=== PATIENT | female | born 1945 | race Caucasian/White ===

== ENCOUNTER 2020-04-26 13:52 | Emergency (ER) | payer MEDICARE, OTHER, SELFPAY ==
[2020-04-26 14:00] VITALS: BP 125/79; PULSE 87; RESP 19; TEMP 36.9; O2SAT 99
[2020-04-26 14:16] VITALS: BP 143/103; PULSE 80; RESP 16; TEMP 36.2; O2SAT 96
[2020-04-26 14:23] LABS: Basophils Percent Auto 0.5 % (0.2-1.2); Eosinophils Absolute Auto 0.3 K/mm3 (0-0.3); Eosinophils Percent Auto 3.5 % (0-4.4); Hemoglobin 11.2 g/dL (12.0-15.0); Immature Granulocyte Absolute 0.04 K/mm3 (0.00-0.031); Immature Granulocyte Percent A 0.5 % (0-0.5); Immature Platelet Fraction Pct 10.6 % (0.9-11.2); Lymphocytes Absolute Auto 1.56 K/mm3 (0.9-3.2); Lymphocytes Percent Auto 18.4 % (18.3-44.2); Mean Corpuscular HGB Conc 31.1 g/dl (32-36); Mean Corpuscular Hemoglobin 26.9 pg (26-34); Mean Corpuscular Volume 86.5 fl (80-100); Monocytes Absolute Auto 0.8 K/mm3 (0.1-0.6); Neutrophils Absolute Auto 5.8 K/mm3 (1.3-6.7); Neutrophils Percent Auto 68.1 % (45.5-73.1); Platelet Count Result 53 k/mm3 (150-375); Red Blood Count 4.16 M/mm3 (4.2-5.4); Red Cell Distribution Width 17.1 % (11.5-14.5); White Blood Count 8.5 K/mm3 (4.5-10.0)
[2020-04-26 14:34] LABS: Alanine Aminotransferase 14 U/L (4-35); Albumin Level 4.6 g/dL (3.5-5.1); Alkaline Phosphatase 138 U/L (38-126); Aspartate Amino Transferase 24 U/L (14-36); Bilirubin,Total 0.5 mg/dL (0.2-1.3); Blood Urea Nitrogen 21 mg/dL (7-17); Calcium 9.2 mg/dL (8.4-10.2); Carbon Dioxide 20 mmol/L (22-30); Chloride 107 mmol/L (98-107); Estimated Glomerular Filt Rate 54; Glucose 117 mg/dL (65-105); Potassium 4.2 mmol/L (3.4-5.0); Sodium 140 mmol/L (137-145)
[2020-04-26 15:25] LABS: Add Urine Microscopic? YES; Appearance Urine Turbid (Clear); Bacteria Urine 2+ /hpf; Bilirubin Urine Negative (Negative); Blood Urine 3+ (Negative); Color Urine Yellow (Yellow); Glucose Urine UA Negative (Negative); Ketones Urine Negative (Negative); Leukocyte Esterase Ur 3+ LEU/UL (Negative); Nitrate Urine Negative (Negative); Protein Urine 2+ mg/dL (Negative); RBC Urine >75 /hpf (0-2); Specific Grav Ur 1.015 (1.001-1.035); Squamous Epithelial Cell Urine Moderate /hpf (Few); Urobilinogen Urine Negative mg/dL (<2.0); WBC Clumps Urine Present /HPF; WBC Urine >75 /hpf
--- NOTE | 2020-04-26 15:48 | ED.ABDPAIN ---
HPI - Abdominal Pain General Chief Complaint: Urogenital-Female Stated Complaint: bloody urine Time Seen by Provider: 04/26/20 13:55 Source: patient Mode of arrival: ambulatory Limitations: no limitations History of Present Illness HPI narrative: Patient is a 74-year-old female who presents with 1 day duration of intermittent hematuria and some discomfort with urination and some mild low back pain patient denies any fever chills nausea vomiting patient presents per private vehicle has not been seen for this complaint does not take anything for her symptoms Related Data Home Medications Medication Instructions Recorded Confirmed acetaminophen 325 mg capsule 325 mg PO Q6H PRN 11/01/19 aspirin 81 mg tablet,delayed 81 mg PO DAILY 11/01/19 release atorvastatin 10 mg tablet 10 mg PO DAILY 11/01/19 calcium carbonate 600 mg calcium 600 mg PO DAILY 11/01/19 (1,500 mg) tablet cholecalciferol (vitamin D3) 50 2,000 unit PO DAILY 11/01/19 mcg (2,000 unit) tablet cyanocobalamin (vitamin B-12) 500 500 mcg PO DAILY 11/01/19 mcg tablet duloxetine 30 mg capsule,delayed 30 mg PO DAILY 11/01/19 release eletriptan 20 mg tablet 20 mg PO ONCE 11/01/19 esomeprazole magnesium 40 mg 40 mg PO DAILY 11/01/19 capsule,delayed release lisinopril 10 mg tablet 10 mg PO DAILY 11/01/19 magnesium 30 mg tablet 30 mg PO DAILY 11/01/19 propranolol 80 mg capsule,24 80 mg PO DAILY 11/01/19 hr,extended release Allergies Allergy/AdvReac Type Severity Reaction Status Date / Time GAMMAGLOBULIN Allergy Unknown unknown Uncoded 11/03/19 11:36 Review of Systems Review of Systems: All systems reviewed & are unremarkable except as noted in HPI and below PMFSH Past Medical History Medical History (Updated 04/26/20 @ 15:51 by Juan A Gruber PA-C) Obesity Family History Family History (Updated 05/12/18 @ 06:24 by DOCTOR UNKNOWN) Father Hypertension Acute myocardial infarction Sibling Hypertension Social History Social History Smoking status: Never smoker Exam Narrative: Exam Narrative: GENERAL: Well-appearing, well-nourished, and in no acute distress. HEAD: Normocephalic, atraumatic. EYES: PERRLA and EOMI. ENT: Nares clear, no rhinorrhea or epistaxis. Mucous membranes moist. CHEST: Clear to auscultation. No respiratory distress. No wheezes rales or rhonchi HEART: Regular rate and rhythm. No murmur heard. Normal peripheral pulses. ABDOMEN: Soft, nontender, nondistended EXTREMITIES: Normal range of motion. No edema. SKIN: Warm, dry, no rash. NEURO: No focal deficits. Alert and oriented x3. Cranial nerves II through XII grossly intact PSYCH: Normal mood and affect. Course Course Emergency Course: patient in the room in no distress aware of case findings treatment plan and diagnosis was given IV antibiotic and fluids in the emergency department is afebrile nontoxic-appearing no distress felt appropriate for outpatient reevaluation provided with reasons to return Vital Signs Vital signs: Vital Signs Temperature 98.5 F 04/26/20 14:00 Pulse Rate 87 04/26/20 14:00 Respiratory Rate 19 04/26/20 14:00 Blood Pressure 125/79 04/26/20 14:00 Pulse Oximetry 99 04/26/20 14:00 Temperature 97.2 F L 04/26/20 14:16 Pulse Rate 80 04/26/20 14:16 Respiratory Rate 16 04/26/20 14:16 Blood Pressure 143/103 H 04/26/20 14:16 Pulse Oximetry 96 04/26/20 14:16 MDM - Abdominal Pain MDM Narrative Medical decision making narrative: Patient with urinary tract infection was hydrated in the emergency department was given IV antibiotic and fluids hemodynamically stable nontoxic without emesis felt appropriate for outpatient reevaluation agreeing to follow-up as directed and provided with reasons to return Lab Data Result diagrams: 04/26/20 14:14 04/26/20 14:14 Labs: Lab Results 04/26/20
[2020-04-26] MEDS: SODIUM CHLORIDE 0.9% IV 500 ML 999 ML IV CONT (16:21)
[2020-04-26 16:25] VITALS: BP 105/58; PULSE 71; RESP 24; TEMP 36.3; O2SAT 98
[2020-04-26 18:10] VITALS: BP 109/59; PULSE 69; RESP 22; TEMP 36.7; O2SAT 98
== END 2020-04-26 18:18 | disposition home or self-care (01) ==
PROVIDERS: Emergency Medicine Emergency Medical Services; Emergency Provider Emergency Medicine
DX: N39.0 Urinary tract infection, site not specified (principal); E66.9 Obesity, unspecified
CPT/HCPCS: 36415; 80053; 81001; 85025; 85055; 87077; 87086; 87088; 87186; 96365; 99284; J0696; J7040

== ENCOUNTER 2020-06-25 15:25 | Outpatient (CLI) | payer MEDICARE, OTHER, SELFPAY ==
--- NOTE | ~2020-06-25 | US_ITS ---
EXAMINATION: US pelvic complete w TV DATE: 06/25/2020 16:20 INDICATION: Postmenopausal bleeding TECHNIQUE: Multiple transabdominal and endovaginal sonographic images of the pelvis were obtained. COMPARISON: None. FINDINGS: The uterus measures 4.6 x 2.2 x 3.1 cm. The endometrial complex measures 3 mm. The left ova ry is not visualized however no left adnexal abnormality is seen. The right ovary measures 1.4 x 1.3 x 2.0 cm. There is normal vascular flow in the right ovary. There is no free fluid in the pelvis. IMPRESSION: 1. No sonographic correlate for the patient's symptoms. Reviewed, dictated and finalized at location A.
== END 2020-06-25 15:26 | disposition home or self-care (01) ==
PROVIDERS: Visit Provider Obstetrics & Gynecology Gynecology
DX: Z78.0 Asymptomatic menopausal state (principal)
CPT/HCPCS: 76830; 76856

== ENCOUNTER 2020-07-05 12:21 | Outpatient (CLI) | payer MEDICARE, OTHER, SELFPAY ==
--- NOTE | ~2020-07-05 | MM_ITS ---
EXAMINATION: MM screen LT diag RT w tima HISTORY: Follow-up right breast asymmetry TECHNIQUE: Additional 3-D tomosynthesis images of the right breast were performed and synthetic 2-D i mages were generated. Screening left mammogram. CAD analysis was submitted and interpreted. COMPARISON: Comparison to multiple prior studies sequentially, with oldest reviewed study dated 10/22. BREAST PARENCHYMAL COMPOSITION: There are scattered areas of fibroglandular density. FINDINGS: No significant change to right breast asymmetry. No suspicious masses, calcifications or ar chitectural distortion to suggest malignancy. IMPRESSION: 1. No mammographic evidence for malignancy in either breast. 2. Routine yearly screening mammogram and regular clinical breast examination are recommended. BI-RADS Category 2: Benign finding(s). Reviewed, dictated and finalized at location A. IMPRESSION: 1. No mammographic evidence for malignancy in either breast. 2. Routine yearly screening mammogram and regular clinical breast examination a re recommended. BI-RADS Category 2: Benign finding(s).
--- NOTE | ~2020-07-05 | DEXA_ITS ---
Bone Density Report Name: Lana Kinney Age: 75 Sex: Female Ethnicity: White Date of : 1945 Indication: postmenopausal; height loss; prior fracture; Referring Provider: MARIA ESTHER ALEXANDRA Study: Bone densitometry was performed. Exam Date: July 05, 2020 Accession number: [id number] Bone Density: Region BMD T-score Z-score Classification AP Spine (L1-L4) 1.126 0.7 3.1 Normal Femoral Neck (Left) 0.713 -1.2 0.8 Osteopenia Total Hip (Left) 0.950 0.1 1.8 Normal Total Hip Bilateral Avg 0.938 0.0 1.7 Normal Femoral Neck (Right) 0.787 -0.6 1.5 Normal Total Hip (Right) 0.926 -0.1 1.6 Normal World Health Organization criteria for BMD impression classify patients as: Normal (T-score at or above -1.0), Osteopenia (T-score between -1.0 and -2.5), or Osteoporosis (T-score at or below -2.5). 10-year Fracture Risk(1): Major Osteoporotic Fracture 14% Hip Fracture 1.9% Reported Risk Factors: [place] (), Neck BMD=0.713, BMI=40.8, previous fracture (1) FRAX(R) Version 3.08. Fracture probability calculated for an untreated patient. Fracture probability may be lower if the patient has received treatment. Clinical Information Provided by Patient: Has had a low trauma fracture Has used the following medications: Vitamin D, Calcium Patient maximum height was 62 Menopause Age: 59 Drinks caffeinated beverages Onset of menses at age 11 Number of children 3 Impression: The patient has low bone mass, based on the Left Femoral Neck T-score. The patient has an estimated ten-year risk of hip fracture of 1.9% and an estimated ten-year risk of major fracture of 14%, based on the WHO FRAX algorithm. The patient has risk factors, including: previous fracture. Discussion: BONE DENSITY IS LOW AT ONE OR MORE SKELETAL SITES. This patient's lowest T-score is low at one or more skeletal sites. It meets the World Health Organization's (WHO) criteria for ?low bone mass? (T-score between -1.0 and -2.5). The patient's 10-year risk of fracture as calculated by FRAX is less than the threshold where pharmacological therapy is recommended by the National Osteoporosis Foundation (NOF). However, all treatment decisions require clinical judgment and consideration of individual patient factors, including patient preferences, comorbidities, previous drug use, risk factors not captured in the FRAX model (e.g., frailty, falls, vitamin D deficiency, increased bone turnover, interval significant decline in bone density) and possible under or overestimation of fracture risk by FRAX. The patient should follow a healthful lifestyle (good nutrition with adequate calcium and vitamin D, and appropriate weight-bearing exercise). Follow-Up: Consider repeating this study in 2 to 3 years to reassess this patient's status, or sooner if there is torri
== END 2020-07-05 12:22 | disposition home or self-care (01) ==
PROVIDERS: PCP Obstetrics & Gynecology Gynecology; Visit Provider Obstetrics & Gynecology Gynecology
DX: Z12.31 Encounter for screening mammogram for malignant neoplasm of breast (principal); Z78.0 Asymptomatic menopausal state; R92.8 Other abnormal and inconclusive findings on diagnostic imaging of breast
CPT/HCPCS: 77063; 77065; 77067; 77080

== ENCOUNTER 2021-02-05 15:04 | Inpatient (IN) | payer MEDICARE, OTHER, SELFPAY ==
[2021-02-05] VITALS (10 sets, daily range): BP systolic 78–157; BP diastolic 48–95; PULSE 54–67; RESP 16–28; TEMP 36.1–36.2; O2SAT 92–98
--- NOTE | ~2021-02-05 | XR_ITS ---
XR chest 1V portable 02/11/2021 13:08 Indication: Shortness of breath Procedure: AP portable chest Comparison: Comparison to multiple prior studies sequentially, with oldest reviewed study dated 04/11. Findings: Cardiomegaly with interstitial edema. Large hiatal hernia. No significant pleural effusion or pneumothorax. No acute osseous abnormality. Impression: 1: Cardiomegaly with interstitial edema. No significant change compared with 02/09/2021. Reviewed, dictated and finalized at location A. Impression: 1: Cardiomegaly with interstitial edema. No significant change compared with .
--- NOTE | ~2021-02-05 | CT_ITS ---
EXAMINATION: CT brain wo con DATE: 02/05/2021 19:24 INDICATION: Dizziness. Fall. TECHNIQUE: Computed tomography (CT) of the head was performed without intravenous contrast. The mA wa s adjusted according to patient size. Iterative reconstruction technique was employed. Exam dose: 60 5.33 mGy-cm total exam DLP. COMPARISON: 04/11/2016 CT brain FINDINGS: No intracranial mass lesion or hemorrhage or cerebrovascular accident is detected. No midli ne shift or mass effect. Bilateral carotid siphon internal carotid artery calcifications. There is nonspecific diminished atte nuation of cerebral white matter, likely due to chronic small vessel ischemic changes. No subdural or epidural hematoma is detected. The orbits are unremarkable. No fracture or bone destruction of the cranial vault. There is soft tissue thickening of the ethmoid air cells. Included paranasal sinuses and mastoid air cells are otherwise unremarkable. IMPRESSION: Cerebral atherosclerosis and chronic small vessel ischemic changes of cerebral white mat ter No skull fracture or acute intracranial abnormality Reviewed, dictated and finalized at Location A. Reviewed, dictated and finalized at location A. IMPRESSION: Cerebral atherosclerosis and chronic small vessel ischemic changes of cerebral white matter No skull fracture or acute intracranial abnormality
--- NOTE | ~2021-02-05 | XR_ITS ---
EXAMINATION: XR chest 2V EXAM DATE: 02/05/2021 16:18 INDICATION: Dizziness, weakness, shortness of breath, decreased appetite. TECHNIQUE: Frontal and lateral projections of the chest obtained and reviewed. Comparison is made to prior examination from 04/11/2016. FINDINGS: Possible small amount of left perihilar acute airspace disease, possible developing pneumo edin without dense confluent consolidation. Heart is normal in size. There is moderate-sized gastroeso phageal hiatal hernia. No pneumothorax or pleural effusion. There are cholecystectomy clips. Mild to moderate lower thoracic levoscoliosis, thoracolumbar dextroscoliosis. IMPRESSION: 1. Possible ill-defined left perihilar acute airspace disease. Please clinically correlate. 2. Moderate gastroesophageal hiatal hernia. Reviewed, dictated and finalized at location A. IMPRESSION: 1. Possible ill-defined left perihilar acute airspace disease. Please clinical ly correlate. 2. Moderate gastroesophageal hiatal hernia.
--- NOTE | ~2021-02-05 | CT_ITS ---
EXAMINATION: CT abdomen pelvis w con DATE: 02/05/2021 21:53 INDICATION: Right lower quadrant abdominal pain, tenderness TECHNIQUE: Computed tomography (CT) of the abdomen and pelvis was performed with 100 cc Omnipaque 350 intravenous contrast. Automated exposure control and iterative reconstruction technique were employe d. Exam dose: 1161.59 mGy-cm total exam DLP. COMPARISON: None. FINDINGS: Cardiomegaly. No pericardial or pleural effusion. There is patchy left lower lobe infiltrate. Moderate hiatal hernia. Status post cholecystectomy. No bile duct or pancreatic duct dilatation. No hepatic, splenic, pancreatic, adrenal space-occupying mass lesion. There is heterogeneous enhancement of the posterolateral aspect of the mid to lower right kidney; thi s appearance is nonspecific and could be secondary to pyelonephritis, but hypernephroma is not exclud ed. Consider MR renal imaging. Left kidney is small and scarred. There is a 5.3 x 7.1 mm nonobstructing left renal calculus. Normal caliber of the abdominal aorta. No intraperitoneal or retroperitoneal or pelvic mass lesion or adenopathy or ascites. Retroverted uterus. The urinary bladder is unremarkable. There is a suture line of the sigmoid colon from prior resection. There are multiple diverticula of t he sigmoid and descending as well as transverse colon. No CT evidence of diverticulitis. There are numerous scattered small bowel air-fluid levels but no small bowel dilatation or apparent b owel wall thickening. No intraperitoneal free air. Grade 2 anterolisthesis and severe degenerative disc disease at L4-5. Severe degenerative disc disease and eburnation at T9-10. There is a 1.5 cm lytic lesion of the right side of the L1 vertebral body. IMPRESSION: Heterogeneous enhancement of the posterolateral mid to lower right kidney; diffusion haylee gnosis includes pyelonephritis but hypernephroma is not excluded. Consider MR imaging Chronic pyelonephritis of left kidney 5.3 x 7.1 mm nonobstructing left renal calculus Status post sigmoid colon resection line diverticulosis of the colon; no CT evidence of diverticuliti s Nonspecific nondilated small bowel fluid containing segments with air-fluid levels 1.5 cm lytic lesion of L1 vertebral body; consider radionuclide bone scan Grade 2 anterolisthesis and severe degenerative disc disease at L4-5 Severe degenerative change at T9-10 Moderate hiatal hernia Status post cholecystectomy Cardiomegaly Patchy left lower lobe pulmonary infiltrate Reviewed, dictated and finalized at Location A. Reviewed, dictated and finalized at location A. IMPRESSION: Heterogeneous enhancement of the posterolateral mid to lower right kidney; diffusion diagnosis includes pyelonephritis but hypernephroma is not e xcluded. Consider MR imaging Chronic pyelonephritis of left kidney 5.3 x 7.1 mm nonobstructing left renal calculus Status post sigmoid colon resection line diverticulosis of the colon; no CT arianna dence of diverticulitis Nonspecific nondilated small bowel fluid containing segments with air-fluid lev els 1.5 cm lytic lesion of L1 vertebral body; consider radionuclide bone scan Grade 2 anterolisthesis and severe degenerative disc disease at L4-5 Severe degenerative change at T9-10 Moderate hiatal hernia Status post cholecystectomy Cardiomegaly Patchy left lower lobe pulmonary infiltrate
--- NOTE | ~2021-02-05 | XR_ITS ---
XR chest 1V portable DATE: 02/09/2021 13:15 INDICATION: Infiltrates. Wheezing, hypoxia TECHNIQUE: Portable AP chest on 02/09/2021 at 1310 hours COMPARISON: 02/07/2021 portable AP chest 02/05/2021 PA and lateral chest 04/11/2016 2 view chest 12/17/2013 PA and lateral chest FINDINGS: Approximately 11 mm opacity overlies the medial right upper lung. Suggestion of an approxim ately 1.7 mm density overlying the lower right hilum. CT thorax with IV contrast material is recommen ded for further evaluation. Heart size is borderline. There is mild pulmonary vascular congestion. No pneumothorax. Mild aortic unfolding. Moderate hiatal hernia. Diffuse osteopenia. IMPRESSION: 1 mm opacity overlying medial right upper lung field and 17 mm opacity overlying right in frahilar area. Consider CT thorax with IV contrast material Mild congestive changes Moderate hiatal hernia, also present on 12/17/2013 Osteopenia Reviewed, dictated and finalized at location A. IMPRESSION: 1 mm opacity overlying medial right upper lung field and 17 mm opac ity overlying right infrahilar area. Consider CT thorax with IV contrast materi al Mild congestive changes Moderate hiatal hernia, also present on 12/17/2013 Osteopenia
--- NOTE | ~2021-02-05 | XR_ITS ---
EXAMINATION: XR chest 1V portable DATE: 02/07/2021 05:50 INDICATION: Wheezing. Hypoxia. TECHNIQUE: A single frontal view of the chest was obtained. COMPARISON: Chest 2 views 02/05/2021, CT abdomen and pelvis 02/05/2021 FINDINGS: There are airspace opacities in right lower lung zone and left perihilar region. No pleural effusion or pneumothorax. Cardiomegaly is noted. There is a moderate-sized hiatal hernia. IMPRESSION: 1. Worsened airspace opacities in right lower lung zone and left perihilar region, consistent with pu lmonary edema versus pneumonia. 2. Cardiomegaly. 3. Moderate-sized hiatal hernia. Reviewed, dictated and finalized at location A. IMPRESSION: 1. Worsened airspace opacities in right lower lung zone and left perihilar mone on, consistent with pulmonary edema versus pneumonia. 2. Cardiomegaly. 3. Moderate-sized hiatal hernia.
--- NOTE | ~2021-02-05 | BM_ITS ---
EXAMINATION: CCL bone marrow asp w bx diag DATE: 02/07/2021 11:05 INDICATION: Pancytopenia. TECHNIQUE: A time-out was performed to verify the patient's name, date of , and procedure to b e performed. The procedure was discussed with the patient. The skin overlying the left ilium was prep ped and draped in usual sterile fashion. Anesthetic was administered with 1% lidocaine subcutaneousl y. 50 mg fentanyl IV was given for pain control. An 11 gauge needle was inserted into the ilium with fluoroscopic guidance. Bone marrow was aspirated. An 8 gauge needle was then inserted into the ilium with fluoroscopic guidance. A core bone marrow biopsy was obtained. There were no immediate complicat ions. Fluoroscopy exposure time was 0.0 minutes. The total number of images was 13. FINDINGS: Real-time fluoroscopy demonstrates a marker overlying the left posterior superior iliac spi ne. IMPRESSION: 1. Fluoro-guided bone marrow aspiration. 2. Fluoro-guided bone marrow core biopsy. Reviewed, dictated and finalized at location A.
--- NOTE | 2021-02-05 15:23 | ECG_ITS ---
Measurements Intervals Gold Run Rate: 56 P: 8 HI: 146 QRS: -10 QRSD: 102 T: -9 QT: 419 QTc: 404 Interpretive Statements SINUS BRADYCARDIA LOW QRS VOLTAGE IN PRECORDIAL LEADS INFERIOR INFARCT, AGE INDETERMINATE BORDERLINE T WAVE ABNORMALITY- ANTERIOR LEADS BASELINE ARTIFACT- I, II, AVR, AVL ABNORMAL ECG Electronically Signed On 02-05-2021 20:14:53 CDT by Matthias Bryant D.O.
--- NOTE | 2021-02-05 16:38 | PC.NURSE ---
attempt at blood per this RN unsuccessful.
[2021-02-05 18:31] LABS: Hematocrit 22.7 % (37.0-47.0); Hemoglobin 7.3 g/dL (12.0-15.0); Immature Platelet Fraction Pct 13.6 % (0.9-11.2); Mean Corpuscular HGB Conc 32.2 g/dl (32-36); Mean Corpuscular Hemoglobin 32.9 pg (26-34); Mean Corpuscular Volume 102.3 fl (80-100); Platelet Count Result 30 k/mm3 (150-375); Red Blood Count 2.22 M/mm3 (4.2-5.4); Red Cell Distribution Width 19.7 % (11.5-14.5)
[2021-02-05 18:41] LABS: Alanine Aminotransferase 8 U/L (4-35); Albumin Level 3.6 g/dL (3.5-5.1); Alkaline Phosphatase 85 U/L (38-126); Anion Gap 15 mmol/L (8-16); Aspartate Amino Transferase 19 U/L (14-36); Bilirubin,Total 1.7 mg/dL (0.2-1.3); Blood Urea Nitrogen 51 mg/dL (7-17); Calcium 8.7 mg/dL (8.4-10.2); Carbon Dioxide 20 mmol/L (22-30); Chloride 102 mmol/L (98-107); Estimated CRCL calculation 46 ml/min; Estimated Glomerular Filt Rate 44; Glucose 136 mg/dL (65-105); Potassium 4.2 mmol/L (3.4-5.0); Sodium 137 mmol/L (137-145)
[2021-02-05 18:45] LABS: White Blood Count 1.4 K/mm3 (4.5-10.0)
[2021-02-05 18:54] LABS: Band Neutrophils Percent 4 % (0-6); Lymphocytes Absolute Manual 0.81 K/mm3 (1.1-4.5); Monocytes Absolute Manual 0.08 K/mm3 (0.1-0.90); Monocytes Percent Manual 6 % (3-9); Neutrophils Percent Manual 32 % (46-73); Platelet Estimate Decreased (Adequate); Total Cells Counted 100
[2021-02-05 18:55] LABS: Anisocytosis 2+ (NORMAL); Hypochromasia 1+ (NORMAL)
--- NOTE | 2021-02-05 19:25 | ED.GENADULT ---
HPI - General Adult General Chief complaint: Shortness of Breath/Dyspnea Stated complaint: dizzy, sob, no appetite x1 wk Time Seen by Provider: 02/05/21 18:14 Source: patient and family Mode of arrival: ambulatory History of Present Illness HPI narrative: This is 75 year old female who presents from home for evaluation of poor appetite, weakness . Patient is complaining of sore throat for 6 months. She reports pain with swallowing and it is worse with cold water. She denies food getting stuck or nausea or vomiting. Her is at bedside he states patient has not ate much over the past week. He states she is having vertigo, and she has fallen due to it. She denies vertigo now. She states when she walks she has to hold onto the wall. She denies chest pain, abdominal pain, nausea, vomiting or diarrhea. She reports having a cough for several months as well. Related Data Home Medications Medication Instructions Recorded Confirmed acetaminophen 325 mg capsule 325 mg PO Q6H PRN 11/01/19 11/01/20 aspirin 81 mg tablet,delayed 81 mg PO DAILY 11/01/19 11/01/20 release atorvastatin 10 mg tablet 10 mg PO DAILY 11/01/19 11/01/20 calcium carbonate 600 mg calcium 600 mg PO DAILY 11/01/19 11/01/20 (1,500 mg) tablet cholecalciferol (vitamin D3) 50 2,000 unit PO DAILY 11/01/19 11/01/20 mcg (2,000 unit) tablet cyanocobalamin (vitamin B-12) 500 500 mcg PO DAILY 11/01/19 11/01/20 mcg tablet duloxetine 30 mg capsule,delayed 30 mg PO DAILY 11/01/19 11/01/20 release eletriptan 20 mg tablet 20 mg PO ONCE 11/01/19 11/01/20 esomeprazole magnesium 40 mg 40 mg PO DAILY 11/01/19 11/01/20 capsule,delayed release lisinopril 10 mg tablet 10 mg PO DAILY 11/01/19 11/01/20 magnesium 30 mg tablet 30 mg PO DAILY 11/01/19 11/01/20 propranolol 80 mg capsule,24 80 mg PO DAILY 11/01/19 11/01/20 hr,extended release Allergies Allergy/AdvReac Type Severity Reaction Status Date / Time GAMMAGLOBULIN Allergy Unknown Anaphylactic Uncoded 02/05/21 18:18 Shock Review of Systems Review of Systems: All systems reviewed & are unremarkable except as noted in HPI and below Constitutional: Constitutional: Denies chills and Denies fever(s) ENT: Reports dizziness and Reports sore throat Cardiovascular: Cardiovascular: Denies chest pain Respiratory: Respiratory: Reports cough and Reports dyspnea Gastrointestinal: Gastrointestinal: Denies abdominal pain, Denies diarrhea, Denies nausea and Denies vomiting PMFSH Past Medical History Medical History Obesity Family History Family History Father Hypertension Acute myocardial infarction Sibling Hypertension Social History Social History Smoking status: Never smoker Gender identity (if verbalized by the patient): Female Exam Const: General: no acute distress and alert Other: oriented to person, age, place HENMT: Ears: TM's normal bilaterally Face and sinus: sinuses nontender Mouth: Yes Normal oral and palatal mucosa present and Yes moist mucous membranes Throat: posterior oropharynx normal and uvula midline Eyes: Pupils: Equal, round and reactive pupils present EOM: EOMs intact bilaterally Neck: Neck: normal visual inspection Chest: Chest palpation & inspection: normal inspection of the chest Resp: Effort & Inspection: normal respiratory effort and no retractions Auscultation: clear to auscultation bilaterally Cardio: Rate: regular rate Rhythm: regular rhythm GI: GI Palp: Yes Soft to palpation, Yes Tenderness to palpation present (GI) and No Guarding due to palpation present (GI) Other: brown stool guaic positive Back/Spine/Pelvis: Back: no CVA tenderness Skin: General skin exam: normal color Rashes: no rashes Neuro: General: patient oriented x3, moves all extremities, no foc
--- NOTE | 2021-02-05 20:25 | PC.NURSE ---
called lab to draw blood.
[2021-02-05 21:08] LABS: Lactic Acid Reflex 1.6 mmol/L (0.7-2.1)
[2021-02-05] MEDS: PANTOPRAZOLE SODIUM IV 40 MG VIAL IV PUSH (21:15)
[2021-02-05 21:34] LABS: Iron 78 ug/dL (37-170)
[2021-02-05] MEDS: SODIUM CHLORIDE 0.9% IV 1,000 ML 999 ML IV CONT (21:39)
--- NOTE | 2021-02-05 21:42 | PC.NURSE ---
[facility] [phone] cell [phone]
[2021-02-05 21:43] LABS: Percent Iron Saturation 30 % (20-50)
[2021-02-05 21:58] LABS: Add Urine Microscopic? YES; Appearance Urine Cloudy (Clear); Bacteria Urine 4+ /hpf; Bilirubin Urine Negative (Negative); Blood Urine 1+ (Negative); Color Urine Amber (Yellow); Glucose Urine UA Negative (Negative); Ketones Urine Negative (Negative); Leukocyte Esterase Ur 3+ LEU/UL (Negative); Mucus Urine Few /lpf; Nitrate Urine Negative (Negative); Protein Urine 1+ mg/dL (Negative); Squamous Epithelial Cell Urine Many /hpf (Few); WBC Urine >75 /hpf
[2021-02-05 23:19] LABS: Folic Acid 4.8 ng/mL (2.76->20)
[2021-02-06] VITALS (40 sets, daily range): BP systolic 85–146; BP diastolic 48–97; PULSE 52–107; RESP 14–28; TEMP 35.9–38.3; O2SAT 91–100; BMI 41.5; BMI 41.3
[2021-02-06] MEDS: SODIUM CHLORIDE 0.9% IV 1,000 ML 999 ML IV CONT (00:04)
--- NOTE | 2021-02-06 00:30 | ADMGEN ---
This patient, Lana Kinney, was admitted to Intensive Care Unit-3. Patient/family oriented to hospital policies and general routines including ID bracelet, bed and alarms, visiting hours, pain management, procedures, bathroom and other care routines, personal items, smoking policy, room service/diet, and visiting hours. Information on how to activate the Rapid Response Team has been discussed. Patient/Family are encouraged to report perceived risks to care and to ask questions if they do not understand what they are told or what they should do.
[2021-02-06 01:10] LABS: Magnesium 2.1 mg/dL (1.6-2.3)
--- NOTE | 2021-02-06 01:27 | PM.IMHP ---
H&P: HPI History of Present Illness Date/Time: 02/06/21 01:27 Chief Complaint: Generalized weakness and decreased PO intake over the past week+ Narrative: This is a 75-year-old morbidly obese female with known past medical history of chronic hypertension, GERD, and hyperlipidemia who presented to the hospital for evaluation of generalized weakness and decreased appetite over the past week. The patient complains that she has had a sore throat for almost 6 months now that includes difficulty with swallowing. The patient admits that she has not eaten much food over the past week. She denies any significant fevers or chills. She denies any significant shortness of breath although she does mention that she has had a sporadic cough for well over a month now. She also denies any chest pain, nausea, vomiting, abdominal pain, hematuria, diarrhea, or rectal bleeding. The patient was evaluated emergency room this evening and found to be in septic shock with pancytopenia and persistently low blood pressure despite IV fluid boluses. Urinalysis was grossly abnormal. CT abd/pelvis showed acute pyelonephritis. The patient has been started on IV antibiotics. She has been swabbed for COVID-19. S[employer] Lap Machine Tender has been consulted. We been asked to admit the patient to the hospital for further care. She has no other complaints. Review of Systems Review of Systems: All systems reviewed & are unremarkable except as noted in HPI and below PMFSH Past Medical History Medical History (Updated 02/06/21 @ 05:37 by Delvis Lindsey MD) Essential hypertension GERD (gastroesophageal reflux disease) Hyperlipidemia Obesity Family History Family History Father Acute myocardial infarction Hypertension Sibling Hypertension Mother Cerebrovascular accident Social History Social History Smoking status: Never smoker Alcohol intake: current Drinks per week: 1 Substance use: never Gender identity (if verbalized by the patient): Female Spiritual care concerns: No Meds Home Medications and Allergies Home Medications Medication Instructions Recorded Confirmed Type acetaminophen 325 mg capsule 325 mg PO Q6H PRN 11/01/19 02/06/21 History aspirin 81 mg tablet,delayed 81 mg PO DAILY 11/01/19 02/06/21 History release atorvastatin 10 mg tablet 10 mg PO DAILY 11/01/19 02/06/21 History calcium carbonate 600 mg calcium 600 mg PO PRN PRN 11/01/19 02/06/21 History (1,500 mg) tablet cholecalciferol (vitamin D3) 50 2,000 unit PO DAILY 11/01/19 02/06/21 History mcg (2,000 unit) tablet cyanocobalamin (vitamin B-12) 500 500 mcg PO DAILY 11/01/19 02/06/21 History mcg tablet duloxetine 30 mg capsule,delayed 30 mg PO DAILY 11/01/19 02/06/21 History release eletriptan 20 mg tablet 20 mg PO PRN PRN 11/01/19 02/06/21 History esomeprazole magnesium 40 mg 40 mg PO DAILY 11/01/19 02/06/21 History capsule,delayed release lisinopril 10 mg tablet 10 mg PO DAILY 11/01/19 02/06/21 History propranolol 80 mg capsule,24 80 mg PO DAILY 11/01/19 02/06/21 History hr,extended release Allergies Allergy/AdvReac Type Severity Reaction Status Date / Time GAMMAGLOBULIN Allergy Unknown Anaphylactic Uncoded 02/05/21 18:18 Shock Vital Signs Vital Signs - 24 hr 02/05/21 16:38 02/05/21 18:14 02/05/21 18:16 Temperature 36.1 C L 36.2 C L Pulse Rate 58 L 60 54 L Respiratory Rate 18 23 H Blood Pressure 93/67 L 139/53 L Pulse Oximetry 96 98 02/05/21 18:26 02/05/21 19:00 02/05/21 21:08 Temperature Pulse Rate 57 L 56 L 58 L Respiratory Rate 16 19 21 H Blood Pressure 139/53 L 128/69 157/95 H Pulse Oximetry 97 98 02/05/21 21:35 02/05/21 21:37 02/05/21 22:01 Temperature Pulse Rate 67 65 57 L Respiratory Rate 22 H 28 H 24 H Blood Pressure 78/64 L 97/50 L 84/48 L Pulse Oximetry 92 93 94 02/05/21 2
[2021-02-06 01:36] LABS: INR 1.2; Prothrombin Time 15.6 Seconds (11.1-14.7)
[2021-02-06 01:37] LABS: Partial Thromboplastin Time 32.7 SECONDS (22.3-36.8)
[2021-02-06 01:39] LABS: D Dimer 3.39 ug/mL (<0.48)
[2021-02-06 01:44] LABS: Fibrinogen 528 mg/dl (215-510)
[2021-02-06 02:51] LABS: Alveolar/Arterial O2 Gradient 72.5 mmHg; Base Excess ABG -3.5 mEq/l (+/-2.0); Fractional Inspired Oxygen 24 %; HCO3 ABG 20.2 mEq/l (22.0-26.0); Oxygen Content ABG 7.3 %vol (16.0-22.0); Oxygen Saturation ABG 93.5 % (95.0-100.0); Oxyhemoglobin 88.5 % THb (90.0-100.0); PCO2 ABG 29.7 mmHg (35.0-45.0); PO2 ABG 63.3 mmHg (80.0-100.0); PO2 FiO2 Ratio Arterial Blood 2.64 %
[2021-02-06 02:52] LABS: Modified Allen's Test Pass; Site Drawn RIGHT RADIAL; Total Hemoglobin 5.8 g/dL (12.0-18.0)
[2021-02-06 02:53] LABS: Device NASAL CANNULA
[2021-02-06 03:45] LABS: Basophils Percent Auto 1.7 % (0.2-1.2); Eosinophils Percent Auto 0.9 % (0-4.4); Immature Granulocyte Absolute 0.04 K/mm3 (0.00-0.031); Immature Granulocyte Percent A 3.4 % (0-0.5); Immature Reticulocyte Fraction 13.5 % (3.0-15.9); Lymphocytes Absolute Auto 0.56 K/mm3 (0.9-3.2); Lymphocytes Percent Auto 47.9 % (18.3-44.2); Mean Corpuscular HGB Conc 32.1 g/dl (32-36); Mean Corpuscular Hemoglobin 32.4 pg (26-34); Mean Corpuscular Volume 101.1 fl (80-100); Monocytes Absolute Auto 0.2 K/mm3 (0.1-0.6); Monocytes Percent Auto 12.8 % (2.6-8.5); Neutrophils Absolute Auto 0.4 K/mm3 (1.3-6.7); Neutrophils Percent Auto 33.3 % (45.5-73.1); Nucleated Red Blood Cells Perc 1.7 % (0.0-0.2); Red Blood Count 1.82 M/mm3 (4.2-5.4); Red Cell Distribution Width 19.6 % (11.5-14.5); Reticulocyte Hemoglobin Conten 29.8 pg (28.2-35.7); Reticulocyte Percent 1.35 % (0.7-4.3); Reticulocytes Absolute 0.02 B/L (32.2-175.7)
[2021-02-06 03:58] LABS: Transferrin 163 mg/dL (206-381)
[2021-02-06 04:26] LABS: Alanine Aminotransferase 6 U/L (4-35); Alkaline Phosphatase 64 U/L (38-126); Anion Gap 7 mmol/L (8-16); Aspartate Amino Transferase 17 U/L (14-36); Bilirubin,Total 1.2 mg/dL (0.2-1.3); Blood Urea Nitrogen 41 mg/dL (7-17); Calcium 7.9 mg/dL (8.4-10.2); Carbon Dioxide 24 mmol/L (22-30); Chloride 102 mmol/L (98-107); Estimated Glomerular Filt Rate 54; Glucose 203 mg/dL (65-105); Lactate Dehydrogenase 642 U/L (313-618); Potassium 3.7 mmol/L (3.4-5.0); Sodium 133 mmol/L (137-145)
[2021-02-06 04:37] LABS: Iron 83 ug/dL (37-170)
[2021-02-06 04:39] LABS: Percent Iron Saturation 36 % (20-50)
[2021-02-06 04:45] LABS: Hematocrit 18.4 % (37.0-47.0); Hemoglobin 5.9 g/dL (12.0-15.0); White Blood Count 1.2 K/mm3 (4.5-10.0)
[2021-02-06 04:46] LABS: Platelet Count Result 25 k/mm3 (150-375)
[2021-02-06 04:47] LABS: Bilirubin,Total 1.2 mg/dL (0.2-1.3)
[2021-02-06] MEDS: SODIUM CHLORIDE 0.9% IV 1,000 ML 125 ML IV CONT ×2 (04:53→17:06)
--- NOTE | 2021-02-06 09:35 | WPDCNINT ---
Assessment and Plan Assessment and plan (1) Septic shock: Code(s): A41.9 - Sepsis, unspecified organism; R65.21 - Severe sepsis with septic shock Status: Acute Assessment and Plan: Patient presented with generalized weakness, hypotension, severe sepsis/septic shock, adequately fluid-resuscitated -lactic acid normal -patient started on ceftriaxone and vancomycin -blood urine cultures have been obtained and pending -pressors at this time. -continued blood pressures, maintain MAP > 65 mmHg at all times, -continue monitor urine output -continue maintenance IV fluids (2) Pyelonephritis: Code(s): N12 - Tubulo-interstitial nephritis, not specified as acute or chronic Status: Acute Assessment and Plan: Patient with pyelonephritis, as a nonobstructing left renal calculus which could be a nidus -patient on antibiotics as above (3) Pancytopenia: Code(s): D61.818 - Other pancytopenia Status: Acute Assessment and Plan: Patient presented with septic shock found to have pancytopenia could be related to septic shock, bone marrow dysfunction -hematology/oncology has been consulted, -patient received 2 units of packed RBCs and 2 units of platelets (4) Acute renal failure: Qualifiers: Acute renal failure type: unspecified Qualified Code(s): N17.9 - Acute kidney failure, unspecified Code(s): N17.9 - Acute kidney failure, unspecified Status: Acute Assessment and Plan: Patient presented with decreased p.o. intake, hypotension, septic shock, she does take lisinopril at home -patient adequately fluid-resuscitated with improvement in creatinine, -continue to monitor renal function, electrolytes and urine output (5) Suspected 2019 novel coronavirus infection: Code(s): Z20.822 - Contact with and (suspected) exposure to COVID-19 Status: Acute Assessment and Plan: SARS-CoV-2 PCR PCR has been obtained and pending -continue airborne, droplet, contact isolation/precautions (6) GERD (gastroesophageal reflux disease): Qualifiers: Esophagitis presence: esophagitis presence not specified Qualified Code(s): K21.9 - Gastro-esophageal reflux disease without esophagitis Code(s): K21.9 - Gastro-esophageal reflux disease without esophagitis Status: Chronic Assessment and Plan: Continue Protonix (7) Delirium: Code(s): R41.0 - Disorientation, unspecified Status: Acute Assessment and Plan: Could be related to underlying medical issues, patient otherwise is awake, alert and oriented, also hallucinating -start slow does Seroquel Additional Plan Discussed with patient and updated with patient's condition and plan of care Code status: Do not resuscitate Critical care time spent: 45 minutes This dictation may have been done utilizing a voice recognition system. Attempts have been made to correct errors. However, there may be uncorrected grammatical, spelling, and recognition errors present. Due to a high probability of clinically significant, life threatening deterioration, the patient required my highest level of preparedness to intervene emergently and I personally spent this critical care time directly and personally managing the patient. This critical care time included obtaining a history; examining the patient; pulse oximetry; ordering and review of studies; arranging urgent treatment with development of a management plan; evaluation of patient's response to treatment; frequent reassessment; and discussions with other providers. It was exclusive of separately billable procedures and treating other patients and teaching time. Please see Assessment and Plan section and the rest of the note for further information on patient assessment and treatment Stator Plate Washer Consult Note Consult date: 02/06/21 Time Seen: 07:04 Reason for consult: Pancytopenia, UTI with septic shock, decreased p.o. intake, generalized
[2021-02-06] MEDS: QUEtiapine FUMARATE 12.5 MG TABLET PO ×2 (10:28→23:35)
[2021-02-06 11:04] LABS: Basophils Percent Auto 2.3 % (0.2-1.2); Eosinophils Percent Auto 0.8 % (0-4.4); Hematocrit 27.5 % (37.0-47.0); Hemoglobin 9.3 g/dL (12.0-15.0); Immature Granulocyte Percent A 7.6 % (0-0.5); Immature Platelet Fraction Pct 10.8 % (0.9-11.2); Lymphocytes Percent Auto 38.2 % (18.3-44.2); Mean Corpuscular HGB Conc 33.8 g/dl (32-36); Mean Corpuscular Hemoglobin 31.7 pg (26-34); Mean Corpuscular Volume 93.9 fl (80-100); Mean Platelet Volume 13.2 fl (7.4-10.4); Monocytes Absolute Auto 0.2 K/mm3 (0.1-0.6); Monocytes Percent Auto 14.5 % (2.6-8.5); Neutrophils Absolute Auto 0.5 K/mm3 (1.3-6.7); Neutrophils Percent Auto 36.6 % (45.5-73.1); Nucleated Red Blood Cells Perc 2.3 % (0.0-0.2); Platelet Count Result 27 k/mm3 (150-375); Red Blood Count 2.93 M/mm3 (4.2-5.4); Red Cell Distribution Width 18.5 % (11.5-14.5)
[2021-02-06 11:24] LABS: White Blood Count 1.3 K/mm3 (4.5-10.0)
[2021-02-06 11:25] LABS: Hypochromasia 1+ (NORMAL); Ovalocytes 1+ (NORMAL); Platelet Estimate Decreased (Adequate)
[2021-02-06] MEDS: HALOPERIDOL LACTATE 5 MG/ML VIAL (12:37)
[2021-02-06] MEDS: dexmedeTOMIDine 400 MCG/100 ML 400 MCG/100 ML BAG 9.3 MCG IV CONT (13:02)
--- NOTE | 2021-02-06 13:05 | PC.NURSE ---
Walked in patients room around 1215 and she had ripped out her IV was attempting to crawl out of bed. Bed, sheets, and patient covered in blood. Patient was cleaned up, linens changed and new IV placed. Dr. Goodman notified of encounter and ordered 5 mg haldol IM
--- NOTE | 2021-02-06 15:00 | PM.IMPN ---
Progress Note: A&P Assessment and Plan (1) Septic shock: Code(s): A41.9 - Sepsis, unspecified organism; R65.21 - Severe sepsis with septic shock Status: Acute Assessment and Plan: the patient was fluid resuscitated did not require vasopressors as evidenced by altered mental status with acute delirium secondary to pyelonephritis hypotension that has now resolved currently on vancomycin received Rocephin and Zithromax await blood culture sepsis workup in progress early goal-directed therapy ongoing (2) Acute pyelonephritis: Code(s): N10 - Acute pyelonephritis Status: Acute Assessment and Plan: likely secondary to kidney stone will need urology consult in the near future (3) Delirium: Code(s): R41.0 - Disorientation, unspecified Status: Acute Assessment and Plan: currently on Precedex and Seroquel due to agitation (4) Left renal stone: Code(s): N20.0 - Calculus of kidney Status: Acute Assessment and Plan: urologic consult when clinically possible (5) Suspected 2019 novel coronavirus infection: Code(s): Z20.822 - Contact with and (suspected) exposure to COVID-19 Status: Acute Assessment and Plan: ruling out on airborne precautions (6) GERD (gastroesophageal reflux disease): Qualifiers: Esophagitis presence: esophagitis presence not specified Qualified Code(s): K21.9 - Gastro-esophageal reflux disease without esophagitis Code(s): K21.9 - Gastro-esophageal reflux disease without esophagitis Status: Chronic Assessment and Plan: stable (7) Strep pharyngitis: Code(s): J02.0 - Streptococcal pharyngitis Status: Acute Assessment and Plan: patient has received azithromycin her Rocephin and vancomycin will continue to monitor (8) LAURENCE (obstructive sleep apnea): Code(s): G47.33 - Obstructive sleep apnea (adult) (pediatric) Status: Acute Assessment and Plan: CPAP at nighttime Subjective Date/time seen: 02/06/21 15:00 I want to go home Review of Systems Review of Systems: ROS unobtainable: Yes unobtainable due to medical condition (Acute delirium) Exam Const: General: comfortable, no acute distress, well developed, alert and awake Nutritional Appearance: average body habitus Orientation/consciousness: oriented to person and Other orientation findings ( delirious) HENMT: Head: normal to inspection, normocephalic and atraumatic Ears: hearing grossly normal bilaterally Face and sinus: normal facial exam Eyes: General: appearance normal, both eyes and all related structures Pupils: Equal, round and reactive pupils present EOM: EOMs intact bilaterally Neck: Neck: full ROM, no lymphadenopathy and no JVD Thyroid: thyroid normal Lymphatic: no lymphadenopathy noted Resp: Effort & Inspection: normal respiratory effort and able to speak in complete sentences Auscultation: clear to auscultation bilaterally Cardio: Jugular venous distension: no JVD Rate: regular rate Rhythm: regular rhythm Heart sounds: S1 normal heart sound present and S2 normal heart sound present GI: GI Palp: Yes Soft to palpation and Yes No hepatosplenomegaly present : General: Yes deferred Skin: Rashes: no rashes Wounds: no wounds Neuro: General: patient oriented x3 and CN's II-XI intact bilaterally Cranial nerves: Yes CN's II-XII intact bilaterally and Yes Equal, round and reactive pupils present Cognition (Neuro): abnormal cognition ( delirious) Speech: normal speech Gait exam (Neuro): Normal gait present Motor exam (neuro): 5/5 motor strength present throughout Extrem: General: normal to inspection, full ROM, no joint enlargement and no pedal edema Objective Data Vital Signs Vital Signs: Vital Signs - 24 hr 02/05/21 16:38 02/05/21 18:14 02/05/21 18:16 Temperature 96.9 F L 97.2 F L Pulse Rate 58 L 60 54 L Respiratory Rate 18 23 H Blood P
--- NOTE | 2021-02-06 16:23 | WPDGICN ---
Assessment and Plan Assessment and plan (1) Pancytopenia: Code(s): D61.818 - Other pancytopenia Status: Acute Assessment and Plan: could be related to sepsis, also hematological (bone marrow)- noted elevated ldh, D-dimer iv protonix for now no obvious GI bleeding now, consult hematology. If obvious gi bleeding then can always proceed with scope evaluation but holding off for now. She is too sick now. (2) Septic shock: Code(s): A41.9 - Sepsis, unspecified organism; R65.21 - Severe sepsis with septic shock Status: Acute Assessment and Plan: medical treatment in icu, pending cultures, on antibiotics (3) Acute pyelonephritis: Code(s): N10 - Acute pyelonephritis Status: Acute Assessment and Plan: antibiotics, by primary team (4) Pneumonia: Code(s): J18.9 - Pneumonia, unspecified organism Status: Acute Assessment and Plan: noted in CT scan (5) Delirium: Code(s): R41.0 - Disorientation, unspecified Status: Acute Assessment and Plan: precedex drip (6) Left renal stone: Code(s): N20.0 - Calculus of kidney Status: Acute (7) Suspected 2019 novel coronavirus infection: Code(s): Z20.822 - Contact with and (suspected) exposure to COVID-19 Status: Acute Assessment and Plan: she is on isolation, pending swab (8) GERD (gastroesophageal reflux disease): Qualifiers: Esophagitis presence: esophagitis presence not specified Qualified Code(s): K21.9 - Gastro-esophageal reflux disease without esophagitis Code(s): K21.9 - Gastro-esophageal reflux disease without esophagitis Status: Chronic GI Consult Note Consult date/time: 02/06/21 16:23 Reason for consult: symptomatic anemia with pancytopenia HPI: Lana Kinney is a 75 year old female with past medical history of hypertension, hyperlipidemia came to ED yesterday with generalized weakness, decreased appetite, shortness of breath for 1 week (history obtained from records as she is confused in the ICU). She apparently has been complaining of sore throat for 6 quite some time with difficulty swallowing. In the ER she was found to be hypotensive and diagnosed with septic shock. CT scan of the brain reviewed, chronic small-vessel ischemic changes, no acute intracranial abnormality or skull fracture. CT scan of the abdomen showed heterogeneous enhancement of the posterior little mid to lower right kidney, diagnosis includes pyelonephritis. 1.5 cm lytic lesion of L1 vertebral body severe degenerative changes cardiomegaly, patchy left lower lobe pulmonary infiltrate. Also had pancytopenia with wbc 1.2k, hb 5.9, plat 25k (transfused 2 units of packed RBCs and 2 units of platelets), repeat hb 10. RN reports no signs of GIB, in fact no bowel movement since admission. Also confused and hallucinating, started on precedex drip. Review of Systems Review of Systems: ROS unobtainable: Yes unobtainable due to mental status PMFSH Past Medical History Medical History (Updated 02/06/21 @ 10:43 by Derick Goodman MD) Essential hypertension GERD (gastroesophageal reflux disease) Hyperlipidemia Obesity Family History Family History Father Acute myocardial infarction Hypertension Sibling Hypertension Mother Cerebrovascular accident Social History Social History Smoking status: Never smoker Alcohol intake: current Drinks per week: 1 Substance use: never Gender identity (if verbalized by the patient): Female Spiritual care concerns: No Meds Home Medications and Allergies Home Medications Medication Instructions Recorded Confirmed Type acetaminophen 325 mg capsule 325 mg PO Q6H PRN 11/01/19 02/06/21 History aspirin 81 mg tablet,delayed 81 mg PO DAILY 11/01/19 02/06/21 History release atorvastatin 10
[2021-02-06] MEDS: HALOPERIDOL LACTATE 5 MG/ML VIAL IV PUSH (16:47)
[2021-02-06 17:02] LABS: SARS-CoV-2 RNA PCR Negative
--- NOTE | 2021-02-06 18:15 | PDONCCN ---
[facility] - Date of Consult Date/Time: 02/06/21 18:15 Requesting Physician: Delvis Lindsey MD Primary Care Provider: ED MADDEN - Consult Narrative Reason for consult: Pancytopenia Narrative: Lana Kinney is a 75 year old female with history of hypertension and hyperlipidemia presented to the hospital with complain of generalized weakness and loss of appetite over 1 week duration. According to the daughter she has been following a lot. Patient is not able to provide much history. According the chart review for the last 6 months patient has been having difficulty swallowing and eating poorly. She denies any fevers and chills. Denies any bleeding and bruising. Patient was found to be in septic shock in the ER. CT abdomen and pelvis showed acute pyelonephritis. Labs showed WBC count of 1.4 hemoglobin of 7.3 [place] [address]. Hemoglobin dropped down to 5.9 soon after that. Patient received 2 units of packed red blood cell. Patient daughter informed me that she has no prior history of any hematological malignancy or any other cancer. Review of Systems - Review of Systems All systems reviewed & are unremarkable except as noted in HPI and [facility] Medical History: Medical History (Last Updated 02/06/21 @ 01:31 by Delvis Lindsey MD) Essential hypertension GERD (gastroesophageal reflux disease) Hyperlipidemia Obesity Family History: Family History (Last Reviewed 02/06/21 @ 01:30 by Delvis Lindsey MD) Father Acute myocardial infarction Hypertension Sibling Hypertension Mother Cerebrovascular accident - Social History Social History: Social History (Last Reviewed 02/06/21 @ 01:30 by Delvis Lindsey MD) Gender Identity: Gender identity (if verbalized by the patient): Female Alcohol Use: Alcohol intake: current Drinks per week: 1 Substance Use: Substance use: never Others: Spiritual care concerns: No Smoking Status: Smoking status: Never smoker Meds Home Medications Medication Instructions Recorded Confirmed Type acetaminophen 325 mg capsule 325 mg PO Q6H PRN 11/01/19 02/06/21 History aspirin 81 mg tablet,delayed 81 mg PO DAILY 11/01/19 02/06/21 History release atorvastatin 10 mg tablet 10 mg PO DAILY 11/01/19 02/06/21 History calcium carbonate 600 mg calcium 600 mg PO PRN PRN 11/01/19 02/06/21 History (1,500 mg) tablet cholecalciferol (vitamin D3) 50 2,000 unit PO DAILY 11/01/19 02/06/21 History mcg (2,000 unit) tablet cyanocobalamin (vitamin B-12) 500 500 mcg PO DAILY 11/01/19 02/06/21 History mcg tablet duloxetine 30 mg capsule,delayed 30 mg PO DAILY 11/01/19 02/06/21 History release eletriptan 20 mg tablet 20 mg PO PRN PRN 11/01/19 02/06/21 History esomeprazole magnesium 40 mg 40 mg PO DAILY 11/01/19 02/06/21 History capsule,delayed release lisinopril 10 mg tablet 10 mg PO DAILY 11/01/19 02/06/21 History propranolol 80 mg capsule,24 80 mg PO DAILY 11/01/19 02/06/21 History hr,extended release Allergies Allergy/AdvReac Type Severity Reaction Status Date / Time GAMMAGLOBULIN Allergy Unknown Anaphylactic Uncoded 02/05/21 18:18 Shock Results - Labs CBC & Chem 7: 02/06/21 10:54 02/06/21 03:12 Labs: Short CBC 02/05/21 02/06/21 02/06/21 Range/Units 18:24 03:12 03:12 WBC 1.4 L* 1.2 L* Cancelled (4.5-10.0) K/mm3 Hgb 7.3 L D 5.9 L* Cancelled (12.0-15.0) g/dL Hct 22.7 L 18.4 L* Cancelled (37.0-47.0) % Plt Count 30 L 25 L Cancelled (150-375) k/mm3 02/06/21 Range/Units 10:54 WBC 1.3 L* (4.5-10.0) K/mm3 Hgb 9.3 L D (12.0-15.0) g/dL Hct 27.5 L (37.0-47.0) % Plt Count 27 L (150-375) k/mm3 BMP 02/05/21 02/06/21 18:24 03:12 Sodium 137 133 L Potassium 4.2 3.7 Chloride 102 102 Carbon Dioxide 20 L 24 BUN 51 H D 41 H D Creatinine 1.20 H 1.00 Glucose 136 H 203 H Calcium 8.7 7.9 L Liver Function 02/05/21 02/06/21
[2021-02-06] MEDS: dexmedeTOMIDine 400 MCG/100 ML 400 MCG/100 ML BAG 6.98 MCG IV CONT (21:50)
[2021-02-07] VITALS (32 sets, daily range): BP systolic 73–153; BP diastolic 43–99; PULSE 44–120; RESP 13–29; TEMP 36.5–37.6; O2SAT 94–100
--- NOTE | 2021-02-07 | ECHO_ITS ---
Patient Info Name: Lana Kinney Age: 75 years : 1945 Gender: Female Ht: 59 in Wt: 207 lbs BSA: 2.03 m2 HR: 81 bpm BP: 145 / 81 mmHg Technical Quality: Good Exam Date: 02/07/2021 1:35 PM Exam Location: [facility] Pulmonary Exam Room: ICU 3 Patient Status: Inpatient Admit Date: 02/05/2021 Staff Ordering Physician: Derick Goodman MD Personal Injury Attorney: Jeni Lala RCS Attending Provider: Delvis Lindsey MD Referring Physician: Roberto Lopez MD; Exam Type: CA echo doppler color flow Study Info Indications - SEPTIC SHOCK Complete two-dimensional, color flow and Doppler transthoracic echocardiogram is performed. Summary 1. Complete two-dimensional, color flow and Doppler transthoracic echocardiogram is performed. 2. Left ventricular chamber dimension is normal. 3. Left ventricular systolic function is normal, estimated at 65-70%. 4. The left ventricular diastolic function is grade I diastolic dysfunction. 5. E/e' 11 is mildly elevated. 6. Left atrial chamber dimension is severely enlarged. 7. Right atrial chamber dimension is moderately enlarged. 8. There is mild mitral valve regurgitation. 9. There is mild to moderate tricuspid valve regurgitation. 10. Severe pulmonary hypertension, estimated pulmonary arterial systolic pressure is 73 mmHg. Left Ventricle E/e' 11 is mildly elevated. Left ventricular chamber dimension is normal. Left ventricular systolic function is normal, estimated at 65-70%. The left ventricular diastolic function is grade I diastolic dysfunction. Right Ventricle Right ventricular systolic function is normal with normal TAPSE at 1.9 cm.. Right ventricular chamber dimension is normal. Left Atria Left atrial chamber dimension is severely enlarged. Right Atria Right atrial chamber dimension is moderately enlarged. Aortic Valve The aortic valve is trileaflet. There is no aortic valve stenosis. There is no aortic valve regurgitation. Pulmonic Valve There is no pulmonic regurgitation. Mitral Valve There is no mitral valve stenosis. There is mild mitral valve regurgitation. Tricuspid Valve There is mild to moderate tricuspid valve regurgitation. Severe pulmonary hypertension, estimated pulmonary arterial systolic pressure is 73 mmHg. Pericardium/Pleural There is no pericardial effusion. Inferior Vena Cava Normal inferior vena cava with >50% collapse upon inspiration consistent with normal right atrial pressure, 5 mmHg. Aorta The aortic root size at the sinus of Valsalva is normal. Left Ventricular Outflow Tract Name Value Normal LVOT 2D LVOT Diameter 2.0 cm LVOT Doppler LVOT Peak Gradient 5 mmHg LVOT Mean Gradient 3 mmHg LVOT VTI 24 cm LVOT VTI/AV VTI Ratio 0.8 LVOT Stroke Volume 75 ml LVOT CO 14.9 l/min LVOT CI 7.3 l/min/m2 Pulmonic Valve Name
[2021-02-07] MEDS: SODIUM CHLORIDE 0.9% IV 1,000 ML 125 ML IV CONT ×3 (02:30→20:37)
[2021-02-07 04:52] LABS: Hematocrit 23.7 % (37.0-47.0); Hemoglobin 7.7 g/dL (12.0-15.0); Immature Platelet Fraction Pct 11.6 % (0.9-11.2); Mean Corpuscular HGB Conc 32.5 g/dl (32-36); Mean Corpuscular Hemoglobin 30.8 pg (26-34); Mean Corpuscular Volume 94.8 fl (80-100); Mean Platelet Volume 13.1 fl (7.4-10.4); Platelet Count Result 26 k/mm3 (150-375); Red Cell Distribution Width 19.5 % (11.5-14.5)
[2021-02-07 05:02] LABS: INR 1.2; Prothrombin Time 15.8 Seconds (11.1-14.7)
[2021-02-07 05:03] LABS: Partial Thromboplastin Time 33.8 SECONDS (22.3-36.8)
[2021-02-07 05:09] LABS: Alanine Aminotransferase 8 U/L (4-35); Albumin Level 2.8 g/dL (3.5-5.1); Alkaline Phosphatase 64 U/L (38-126); Anion Gap 7 mmol/L (8-16); Aspartate Amino Transferase 19 U/L (14-36); Bilirubin,Total 1.3 mg/dL (0.2-1.3); Blood Urea Nitrogen 22 mg/dL (7-17); CRP 8.6 mg/dL (<1.0); Calcium 7.5 mg/dL (8.4-10.2); Carbon Dioxide 22 mmol/L (22-30); Chloride 107 mmol/L (98-107); Estimated Glomerular Filt Rate 49; Glucose 139 mg/dL (65-105); Magnesium 1.7 mg/dL (1.6-2.3); Phosphorus 3.2 mg/dL (2.5-4.5); Potassium 3.4 mmol/L (3.4-5.0); Sodium 136 mmol/L (137-145)
[2021-02-07 05:14] LABS: White Blood Count 1.4 K/mm3 (4.5-10.0)
--- NOTE | 2021-02-07 08:21 | WPDINTPN ---
Progress Note: A&P Assessment and Plan (1) Septic shock: Code(s): A41.9 - Sepsis, unspecified organism; R65.21 - Severe sepsis with septic shock Status: Acute Assessment and Plan: Patient presented with generalized weakness, hypotension, severe sepsis/septic shock, adequately fluid-resuscitated -lactic acid normal -patient started on ceftriaxone and vancomycin -urine cultures growing Gram-negative bacilli, blood cultures pending -pressors at this time. -on low-dose phenylephrine, maintain MAP > 65 mmHg at all times, -urine output has been adequate -continue maintenance IV fluids (2) Pyelonephritis: Code(s): N12 - Tubulo-interstitial nephritis, not specified as acute or chronic Status: Acute Assessment and Plan: Patient with pyelonephritis, as a nonobstructing left renal calculus which could be a nidus -patient on antibiotics as above (3) Pancytopenia: Code(s): D61.818 - Other pancytopenia Status: Acute Assessment and Plan: Patient presented with septic shock found to have pancytopenia could be related to septic shock, bone marrow dysfunction -hematology/oncology has been consulted, -patient received 2 units of packed RBCs and 2 units of platelets -appreciate hematology/oncology evaluation and recommendation, pancytopenia likely related to marrow dysfunction or acute leukemia -bone marrow biopsy has been recommended, family to get back to Dr. Lopez (4) Acute renal failure: Qualifiers: Acute renal failure type: unspecified Qualified Code(s): N17.9 - Acute kidney failure, unspecified Code(s): N17.9 - Acute kidney failure, unspecified Status: Acute Assessment and Plan: Patient presented with decreased p.o. intake, hypotension, septic shock, she does take lisinopril at home -patient adequately fluid-resuscitated with improvement in creatinine, -continue to monitor renal function, electrolytes and urine output (5) Suspected 2019 novel coronavirus infection: Code(s): Z20.822 - Contact with and (suspected) exposure to COVID-19 Status: Acute Assessment and Plan: SARS-CoV-2 PCR PCR has been obtained and pending -continue airborne, droplet, contact isolation/precautions (6) GERD (gastroesophageal reflux disease): Qualifiers: Esophagitis presence: esophagitis presence not specified Qualified Code(s): K21.9 - Gastro-esophageal reflux disease without esophagitis Code(s): K21.9 - Gastro-esophageal reflux disease without esophagitis Status: Chronic Assessment and Plan: Continue Protonix (7) Delirium: Code(s): R41.0 - Disorientation, unspecified Status: Acute Assessment and Plan: Could be related to underlying medical issues, patient otherwise is awake, alert and oriented, also hallucinating -start slow does Seroquel -off Precedex infusion Additional Plan Discussed with patient and updated with patient's condition and plan of care Code status: Do not resuscitate Critical care time spent: 32 minutes This dictation may have been done utilizing a voice recognition system. Attempts have been made to correct errors. However, there may be uncorrected grammatical, spelling, and recognition errors present. Due to a high probability of clinically significant, life threatening deterioration, the patient required my highest level of preparedness to intervene emergently and I personally spent this critical care time directly and personally managing the patient. This critical care time included obtaining a history; examining the patient; pulse oximetry; ordering and review of studies; arranging urgent treatment with development of a management plan; evaluation of patient's response to treatment; frequent reassessment; and discussions with other providers. It was exclusive of separately billable procedures and treating other patients and teaching time. Please see Assessment and Plan section a
[2021-02-07] MEDS: QUEtiapine FUMARATE 12.5 MG TABLET PO ×2 (08:25→20:37)
[2021-02-07] MEDS: POTASSIUM CHLORIDE 20 MEQ TABLET 40 MEQ PO (08:29)
--- NOTE | 2021-02-07 10:56 | PCDIET ---
ICU Rounding Note: Patient currently NPO for bone marrow biopsy. Last recorded weight is 93.9kg which is increased from last review. +I/O. Bowel Motility: No documented BM. Labs Reviewed: Hgb (7.7), Hct (23.7), Glu (139), BUN (22), Cr (1.1), Na (136), Alb (2.8), Jason Ca (8.46) Meds Noted: NS at 125mL/hr, Zithromax, Rocephin, Vancomycin, Phenylephrine, KCl Additional Notes: No documented skin breakdown. Following daily in ICU rounds. Assessing/reassessing every 5 days.
--- NOTE | 2021-02-07 13:43 | WPDGIPROGNO ---
Progress Note: A&P Assessment and Plan (1) Septic shock: Code(s): A41.9 - Sepsis, unspecified organism; R65.21 - Severe sepsis with septic shock Status: Acute Assessment and Plan: management by icu, + urine culture on antibiotics (2) Pancytopenia: Code(s): D61.818 - Other pancytopenia Status: Acute Assessment and Plan: just had BM biopsy and oncology on board, no report of GIB per patient (she is alert and oriented today)- also told me her pertinent GI history, no need to do scopes unless any changes or obvious gib will follow from afar (3) Acute pyelonephritis: Code(s): N10 - Acute pyelonephritis Status: Acute Assessment and Plan: on treatment (4) Delirium: Code(s): R41.0 - Disorientation, unspecified Status: Acute Assessment and Plan: resolved Subjective Date/time seen: 02/07/21 13:43 Interval history: she is not confused and able to tell me more history. Had diverticulitis with partial colectomy years ago, she has been getting colonoscopies every 5 years with last one about 3 years ago, also had large hiatal hernia repair late , last egd ~ 3 years ago. She came here with ongoing sore throat and dry mouth, denies gib but noted some blood after urination. Review of Systems Review of Systems: All systems reviewed & are unremarkable except as noted in HPI and below Exam Const: General: no acute distress Other: sick appearing HENMT: Other: dry mouth Eyes: Sclera: sclerae normal Neck: Neck: supple Resp: Effort & Inspection: normal respiratory effort Auscultation: clear to auscultation bilaterally and diminished lung sounds Cardio: Rate: regular rate Rhythm: regular rhythm GI: Inspection: non-distended GI Palp: Yes Soft to palpation and No Tenderness to palpation present (GI) Auscultation: normal bowel sounds Other: Obese Skin: Other: Multiple bruising noted on the upper extremity Neuro: Other: Patient is awake, alert, oriented to place and person, not confused today (better) Extrem: General: normal to inspection, no edema and no pedal edema Psych: Affect: normal affect Objective Data Vital Signs Vital Signs: Vital Signs - 24 hr 02/06/21 14:00 02/06/21 15:07 02/06/21 15:37 Temperature 100.2 F H 100.6 F H 100.6 F H Pulse Rate 92 Respiratory Rate 16 Blood Pressure Pulse Oximetry 02/06/21 16:00 02/06/21 16:34 02/06/21 17:00 Temperature 100.9 F H Pulse Rate 86 Respiratory Rate 16 Blood Pressure 140/93 H Pulse Oximetry 95 91 95 02/06/21 18:00 02/06/21 18:10 02/06/21 18:21 Temperature 100.2 F H Pulse Rate 55 L 55 L 54 L Respiratory Rate 18 18 Blood Pressure 85/54 L Pulse Oximetry 92 02/06/21 18:47 02/06/21 19:44 02/06/21 20:00 Temperature 98.9 F Pulse Rate 56 L 60 52 L Respiratory Rate 18 Blood Pressure 120/97 H Pulse Oximetry 100 100 02/06/21 21:50 02/06/21 22:00 02/06/21 22:08 Temperature 99.9 F H Pulse Rate 58 L 60 83 Respiratory Rate 19 27 H Blood Pressure 122/74 Pulse Oximetry 99 02/06/21 23:05 02/06/21 23:36 02/06/21 23:47 Temperature 100.0 F H Pulse Rate 87 Respiratory Rate 23 H Blood Pressure Pulse Oximetry 100 02/07/21 00:00 02/07/21 00:01 02/07/21 00:06 Temperature 99.7 F H 99.7 F H Pulse Rate 88 91 Respiratory Rate 18 Blood Pressure 113/92 H Pulse Oximetry 97 02/07/21 02:00 02/07/21 03:00 02/07/21 03:55 Temperature 98.9 F Pulse Rate 73 79 Respiratory Rate 20 21 H Blood Pressure 111/62 Pulse Oximetry 99 99 02/07/21 03:57 02/07/21 04:00 02/07/21 05:00 Temperature 98.1 F Pulse Rate 54 L 46 L Respiratory Rate 16 15 Blood Pressure 89/61 L Pulse Oximetry 99 02/07/21 05:15 02/07/21 05:30 02/07/21 05:45 Temperature Pulse Rate 51 L 50 L 51 L Respiratory Rate 16 21 H 16 Blood Pressure 90/50 L 76/50 L 86/43 L Pulse Oximetry 100 100 100 02/07/21 06:00 02/07/21 06:30 0
--- NOTE | 2021-02-07 15:30 | PC.NURSE ---
Patient to room from ICU 3 via hospital bed. Visitor with patient. Belongings with patient. Patient and visitor oriented to room and policies.
--- NOTE | 2021-02-07 15:38 | PC.NURSE ---
Patient downgraded to medical status, transferred to 344 via bed, report given to Kehinde ROMERO at 1148
--- NOTE | 2021-02-07 17:00 | PM.IMPN ---
Progress Note: A&P Assessment and Plan (1) Septic shock: Code(s): A41.9 - Sepsis, unspecified organism; R65.21 - Severe sepsis with septic shock Status: Acute Assessment and Plan: patient on broad-spectrum antibiotic source is pyelonephritis urine culture positive for Klebsiella oxytoca pansensitive for the most part will deescalate antibiotics as blood cultures with no growth so far supportive care good urine output continue to monitor appreciate temporary data entry clerk note transfer to general medical floor (2) Pyelonephritis: Code(s): N12 - Tubulo-interstitial nephritis, not specified as acute or chronic Status: Acute Assessment and Plan: likely secondary to kidney stone will need follow-up in the outpatient setting with urology (3) Pancytopenia: Code(s): D61.818 - Other pancytopenia Status: Acute Assessment and Plan: had a bone marrow done appreciate Heme-Onc consult continue to monitor (4) Left renal stone: Code(s): N20.0 - Calculus of kidney Status: Acute Assessment and Plan: follow-up in the outpatient setting (5) Essential hypertension: Code(s): I10 - Essential (primary) hypertension Status: Chronic Assessment and Plan: continue to monitor patient require low-dose vasopressor (6) GERD (gastroesophageal reflux disease): Qualifiers: Esophagitis presence: esophagitis presence not specified Qualified Code(s): K21.9 - Gastro-esophageal reflux disease without esophagitis Code(s): K21.9 - Gastro-esophageal reflux disease without esophagitis Status: Chronic Assessment and Plan: stable (7) LAURENCE (obstructive sleep apnea): Code(s): G47.33 - Obstructive sleep apnea (adult) (pediatric) Status: Acute Assessment and Plan: CPAP at nighttime (8) Delirium: Code(s): R41.0 - Disorientation, unspecified Status: Acute Assessment and Plan: waxes and wanes is started on low dose Seroquel patient was some bizarre delusions and hallucinations likely secondary to sepsis supportive care (9) Suspected 2019 novel coronavirus infection: Code(s): Z20.822 - Contact with and (suspected) exposure to COVID-19 Status: Acute Assessment and Plan: ruled out Subjective Date/time seen: 02/07/21 17:00 I am feeling better Review of Systems Review of Systems: Narrative: patient with delirium that waxes and wanes manifested with hallucinations ROS unobtainable: Yes unobtainable due to medical condition Exam Const: General: comfortable, no acute distress, well developed, alert and awake Nutritional Appearance: average body habitus Orientation/consciousness: oriented to person and oriented to place HENMT: Head: normal to inspection, normocephalic and atraumatic Ears: hearing grossly normal bilaterally Face and sinus: normal facial exam Eyes: General: appearance normal, both eyes and all related structures Pupils: Equal, round and reactive pupils present EOM: EOMs intact bilaterally Neck: Neck: full ROM, no lymphadenopathy and no JVD Thyroid: thyroid normal Lymphatic: no lymphadenopathy noted Resp: Effort & Inspection: normal respiratory effort and able to speak in complete sentences Auscultation: clear to auscultation bilaterally Cardio: Jugular venous distension: no JVD Rate: regular rate Rhythm: regular rhythm Heart sounds: S1 normal heart sound present and S2 normal heart sound present GI: GI Palp: Yes Soft to palpation and Yes No hepatosplenomegaly present : General: Yes deferred Skin: Rashes: no rashes Wounds: no wounds Neuro: General: oriented to person, oriented to place and CN's II-XI intact bilaterally Cranial nerves: Yes CN's II-XII intact bilaterally and Yes Equal, round and reactive pupils present Cognition (Neuro): normal cognition Speech: normal speech Gait exam (Neuro): Normal gait present Motor exam
--- NOTE | 2021-02-07 17:08 | PC.NURSE ---
Found patient in distress in room. Evaluated with DELIVERY AIDE and took vital signs. Patient was 83% oxygen on room air. We boosted patient in bed and raised HOB to have patient sit up. Oxygen went to 87% on room air. Put patient on 2L nasal cannula and patient went to 97% oxygen. Stayed with patient to monitor and oxygen stayed 97% on 2L. Left patient on 2L and will continue to monitor.
[2021-02-08] VITALS (7 sets, daily range): BP systolic 104–149; BP diastolic 46–122; PULSE 69–109; RESP 20–24; TEMP 36.5–36.6; O2SAT 93–97
[2021-02-08] MEDS: SODIUM CHLORIDE 0.9% IV 1,000 ML 125 ML IV CONT ×2 (05:34→16:33)
[2021-02-08 05:55] LABS: Hematocrit 25.7 % (37.0-47.0); Hemoglobin 8.6 g/dL (12.0-15.0); Mean Corpuscular HGB Conc 33.5 g/dl (32-36); Mean Corpuscular Hemoglobin 32.2 pg (26-34); Mean Corpuscular Volume 96.3 fl (80-100); Red Blood Count 2.67 M/mm3 (4.2-5.4); Red Cell Distribution Width 19.6 % (11.5-14.5)
[2021-02-08 06:12] LABS: Platelet Count Result 23 k/mm3 (150-375); White Blood Count 1.3 K/mm3 (4.5-10.0)
[2021-02-08 06:21] LABS: Alanine Aminotransferase 8 U/L (4-35); Albumin Level 2.9 g/dL (3.5-5.1); Alkaline Phosphatase 68 U/L (38-126); Anion Gap 10 mmol/L (8-16); Aspartate Amino Transferase 21 U/L (14-36); Bilirubin,Total 1.8 mg/dL (0.2-1.3); Blood Urea Nitrogen 14 mg/dL (7-17); Calcium 7.6 mg/dL (8.4-10.2); Carbon Dioxide 17 mmol/L (22-30); Chloride 108 mmol/L (98-107); Estimated Glomerular Filt Rate > 60; Glucose 146 mg/dL (65-105); Magnesium 1.6 mg/dL (1.6-2.3); Phosphorus 2.7 mg/dL (2.5-4.5); Potassium 3.8 mmol/L (3.4-5.0); Sodium 135 mmol/L (137-145)
[2021-02-08 06:43] LABS: Vancomycin Trough 14.2 ug/mL (10.0-20.0)
[2021-02-08] MEDS: QUEtiapine FUMARATE 12.5 MG TABLET PO ×2 (09:44→21:14)
[2021-02-08] MEDS: FUROSEMIDE INJ 40 MG/4 ML VIAL IV PUSH (09:44)
--- NOTE | 2021-02-08 14:06 | PM.IMPN ---
Progress Note: A&P Assessment and Plan (1) Delirium: Code(s): R41.0 - Disorientation, unspecified Status: Acute Assessment and Plan: seems to have resolved continue Seroquel continue to monitor (2) Suspected 2019 novel coronavirus infection: Code(s): Z20.822 - Contact with and (suspected) exposure to COVID-19 Status: Acute Assessment and Plan: ruled out (3) Pancytopenia: Code(s): D61.818 - Other pancytopenia Status: Acute Assessment and Plan: a status post bone marrow biopsy (4) Septic shock: Code(s): A41.9 - Sepsis, unspecified organism; R65.21 - Severe sepsis with septic shock Status: Acute Assessment and Plan: resolved (5) Essential hypertension: Code(s): I10 - Essential (primary) hypertension Status: Chronic Assessment and Plan: continue home meds as needed well control (6) GERD (gastroesophageal reflux disease): Qualifiers: Esophagitis presence: esophagitis presence not specified Qualified Code(s): K21.9 - Gastro-esophageal reflux disease without esophagitis Code(s): K21.9 - Gastro-esophageal reflux disease without esophagitis Status: Chronic Assessment and Plan: PPI as needed (7) Acute pyelonephritis: Code(s): N10 - Acute pyelonephritis Status: Acute Assessment and Plan: continue antibiotics seems to have improved continue to monitor will need follow-up in the outpatient setting for renal calculi (8) Pancytopenia: Code(s): D61.818 - Other pancytopenia Status: Acute Assessment and Plan: continue to monitor awaiting bone marrow biopsy will follow-up in outpatient setting (9) LAURENCE (obstructive sleep apnea): Code(s): G47.33 - Obstructive sleep apnea (adult) (pediatric) Status: Acute Assessment and Plan: CPAP at night time Subjective Date/time seen: 02/08/21 14:06 I feel fine Review of Systems Review of Systems: Narrative: patient with discomfort due to edema on bilateral upper extremities in her hands and fingers and a ring diuresing her left hand in the ring finger. All systems reviewed & are unremarkable except as noted in HPI and below Constitutional: Comments: no fevers no rigors nausea Cardiovascular: Comments: no chest pain, no PND, no orthopnea Respiratory: Comments: no cough, no sputum production. Gastrointestinal: Comments: no nausea vomiting diarrhea or abdominal pain Musculoskeletal: Comments: edema mainly of upper extremities Integumentary/Breasts: Comments: no rashes Neurologic: Comments: no sensorimotor deficit Exam Narrative: Exam Narrative: sitting in chair Const: General: comfortable, no acute distress, well developed, alert and awake Nutritional Appearance: average body habitus Orientation/consciousness: patient oriented x3 HENMT: Head: normal to inspection, normocephalic and atraumatic Ears: hearing grossly normal bilaterally Face and sinus: normal facial exam Eyes: General: appearance normal, both eyes and all related structures Pupils: Equal, round and reactive pupils present EOM: EOMs intact bilaterally Neck: Neck: full ROM, no lymphadenopathy and no JVD Thyroid: thyroid normal Lymphatic: no lymphadenopathy noted Resp: Effort & Inspection: normal respiratory effort and able to speak in complete sentences Auscultation: wheezes expiratory wheezes Cardio: Jugular venous distension: no JVD Rate: regular rate Rhythm: regular rhythm Heart sounds: S1 normal heart sound present and S2 normal heart sound present GI: GI Palp: Yes Soft to palpation and Yes No hepatosplenomegaly present : General: Yes deferred Skin: Rashes: no rashes Wounds: no wounds Neuro: General: patient oriented x3 and CN's II-XI intact bilaterally Cranial nerves: Yes CN's II-XII intact bilaterally and Yes Equal, round and reactive pupils present Cognition (Neuro): no
[2021-02-09] VITALS (11 sets, daily range): BP systolic 94–159; BP diastolic 59–79; PULSE 71–103; RESP 15–28; TEMP 35.8–36; O2SAT 96–100
[2021-02-09] MEDS: SODIUM CHLORIDE 0.9% IV 1,000 ML 125 ML IV CONT ×2 (05:07→17:37)
[2021-02-09 06:00] LABS: Hematocrit 23.4 % (37.0-47.0); Immature Platelet Fraction Pct 11.6 % (0.9-11.2); Mean Corpuscular HGB Conc 34.2 g/dl (32-36); Mean Corpuscular Volume 93.6 fl (80-100); Mean Platelet Volume 13.6 fl (7.4-10.4); Red Cell Distribution Width 18.9 % (11.5-14.5)
[2021-02-09 06:10] LABS: Platelet Count Result 22 k/mm3 (150-375); White Blood Count 1.4 K/mm3 (4.5-10.0)
[2021-02-09 06:14] LABS: Alanine Aminotransferase 9 U/L (4-35); Albumin Level 2.6 g/dL (3.5-5.1); Alkaline Phosphatase 56 U/L (38-126); Anion Gap 7 mmol/L (8-16); Aspartate Amino Transferase 22 U/L (14-36); Blood Urea Nitrogen 20 mg/dL (7-17); Calcium 7.7 mg/dL (8.4-10.2); Carbon Dioxide 22 mmol/L (22-30); Chloride 108 mmol/L (98-107); Estimated Glomerular Filt Rate 54; Glucose 142 mg/dL (65-105); Magnesium 1.6 mg/dL (1.6-2.3); Potassium 4.2 mmol/L (3.4-5.0); Sodium 137 mmol/L (137-145)
[2021-02-09] MEDS: QUEtiapine FUMARATE 12.5 MG TABLET PO ×2 (10:59→22:30)
--- NOTE | 2021-02-09 12:48 | PM.IMPN ---
Progress Note: A&P Assessment and Plan (1) Pyelonephritis: Code(s): N12 - Tubulo-interstitial nephritis, not specified as acute or chronic Status: Acute Assessment and Plan: patient growing Klebsiella oxytoca in urine culture which is sensitive to Rocephin will continue Rocephin clinically improved will continue to monitor supportive care (2) Delirium: Code(s): R41.0 - Disorientation, unspecified Status: Acute Assessment and Plan: on Seroquel appears to have subsided continue to monitor (3) Pancytopenia: Code(s): D61.818 - Other pancytopenia Status: Acute Assessment and Plan: is status post bone marrow biopsy awaiting results (4) Septic shock: Code(s): A41.9 - Sepsis, unspecified organism; R65.21 - Severe sepsis with septic shock Status: Acute Assessment and Plan: resolved (5) Pneumonia: Code(s): J18.9 - Pneumonia, unspecified organism Status: Acute Assessment and Plan: equivocal infiltrates for fluid overload versus pneumonia will repeat a chest x-ray currently diuresing if persistence of infiltrate will continue antibiotics (6) Essential hypertension: Code(s): I10 - Essential (primary) hypertension Status: Chronic Assessment and Plan: stable (7) GERD (gastroesophageal reflux disease): Qualifiers: Esophagitis presence: esophagitis presence not specified Qualified Code(s): K21.9 - Gastro-esophageal reflux disease without esophagitis Code(s): K21.9 - Gastro-esophageal reflux disease without esophagitis Status: Chronic Assessment and Plan: PPI as (8) LAURENCE (obstructive sleep apnea): Code(s): G47.33 - Obstructive sleep apnea (adult) (pediatric) Status: Acute Assessment and Plan: wearing BiPAP (9) Left renal stone: Code(s): N20.0 - Calculus of kidney Status: Acute Assessment and Plan: will follow in the outpatient setting for external sound wave lithotripsy. Subjective Date/time seen: 02/09/21 12:48 I feel fine Review of Systems Review of Systems: Narrative: patient denies any concerns at this time Exam Const: General: comfortable, no acute distress, well developed, alert and awake Nutritional Appearance: overweight Orientation/consciousness: patient oriented x3 HENMT: Head: normal to inspection, normocephalic and atraumatic Ears: hearing grossly normal bilaterally Face and sinus: normal facial exam Eyes: General: appearance normal, both eyes and all related structures Pupils: Equal, round and reactive pupils present EOM: EOMs intact bilaterally Neck: Neck: full ROM, no lymphadenopathy and no JVD Thyroid: thyroid normal Lymphatic: no lymphadenopathy noted Resp: Effort & Inspection: normal respiratory effort and able to speak in complete sentences Auscultation: clear to auscultation bilaterally Cardio: Jugular venous distension: no JVD Rate: regular rate Rhythm: regular rhythm Heart sounds: S1 normal heart sound present and S2 normal heart sound present GI: GI Palp: Yes Soft to palpation and Yes No hepatosplenomegaly present : General: Yes deferred Skin: Rashes: no rashes Wounds: no wounds Neuro: General: patient oriented x3 and CN's II-XI intact bilaterally Cranial nerves: Yes CN's II-XII intact bilaterally and Yes Equal, round and reactive pupils present Cognition (Neuro): normal cognition Speech: normal speech Gait exam (Neuro): Normal gait present Motor exam (neuro): 5/5 motor strength present throughout Extrem: General: full ROM, no joint enlargement, no pedal edema and other ( bilateral upper extremity hands edema) Objective Data Vital Signs Vital Signs: Vital Signs - 24 hr 02/08/21 16:00 02/08/21 17:46 02/08/21 18:29 Temperature 97.9 F Pulse Rate 78 99 99 Respiratory Rate 24 H 24 H Blood Pressure 147/122 H 104/46 L Pulse Oximetry 93 93 02/08/21 20:00
[2021-02-09] MEDS: FUROSEMIDE INJ 40 MG/4 ML VIAL IV PUSH (17:38)
[2021-02-09] MEDS: ALBUTEROL SULFATE NEB 2.5 MG/0.5 ML INH INHALATION ×2 (17:52→19:43)
[2021-02-09 18:58] LABS: Glucose Point of Care 135 (65-105)
[2021-02-10] VITALS (13 sets, daily range): BP systolic 126–144; BP diastolic 63–81; PULSE 78–111; RESP 16–26; TEMP 36.3–36.4; O2SAT 91–97
[2021-02-10] MEDS: ALBUTEROL SULFATE NEB 2.5 MG/0.5 ML INH INHALATION ×4 (02:48→18:37)
[2021-02-10] MEDS: SODIUM CHLORIDE 0.9% IV 1,000 ML 125 ML IV CONT (02:52)
[2021-02-10 06:01] LABS: Hematocrit 21.5 % (37.0-47.0); Hemoglobin 7.4 g/dL (12.0-15.0); Immature Platelet Fraction Pct 10.2 % (0.9-11.2); Mean Corpuscular HGB Conc 34.4 g/dl (32-36); Mean Corpuscular Hemoglobin 31.8 pg (26-34); Mean Corpuscular Volume 92.3 fl (80-100); Red Blood Count 2.33 M/mm3 (4.2-5.4); Red Cell Distribution Width 18.8 % (11.5-14.5)
[2021-02-10 06:09] LABS: Platelet Count Result 20 k/mm3 (150-375)
[2021-02-10 06:14] LABS: Alanine Aminotransferase 9 U/L (4-35); Albumin Level 2.7 g/dL (3.5-5.1); Alkaline Phosphatase 55 U/L (38-126); Anion Gap 7 mmol/L (8-16); Aspartate Amino Transferase 25 U/L (14-36); Bilirubin,Total 0.9 mg/dL (0.2-1.3); Blood Urea Nitrogen 22 mg/dL (7-17); Calcium 7.7 mg/dL (8.4-10.2); Carbon Dioxide 22 mmol/L (22-30); Chloride 109 mmol/L (98-107); Estimated Glomerular Filt Rate 54; Glucose 131 mg/dL (65-105); Magnesium 1.7 mg/dL (1.6-2.3); Phosphorus 3.8 mg/dL (2.5-4.5); Potassium 4.2 mmol/L (3.4-5.0); Sodium 138 mmol/L (137-145)
[2021-02-10] MEDS: QUEtiapine FUMARATE 12.5 MG TABLET PO ×2 (09:08→21:23)
[2021-02-10] MEDS: FUROSEMIDE INJ 40 MG/4 ML VIAL IV PUSH ×2 (09:08→17:38)
--- NOTE | 2021-02-10 15:19 | PM.IMPN ---
Progress Note: A&P Assessment and Plan (1) Pyelonephritis: Code(s): N12 - Tubulo-interstitial nephritis, not specified as acute or chronic Status: Acute Assessment and Plan: patient currently on Rocephin improved continue to monitor supportive care (2) Delirium: Code(s): R41.0 - Disorientation, unspecified Status: Acute Assessment and Plan: resolved continue Seroquel (3) Left renal stone: Code(s): N20.0 - Calculus of kidney Status: Acute Assessment and Plan: will likely have external wave lithotripsy follow-up in outpatient setting (4) Pancytopenia: Code(s): D61.818 - Other pancytopenia Status: Acute Assessment and Plan: is status post a bone marrow biopsy follow-up in the outpatient setting (5) Septic shock: Code(s): A41.9 - Sepsis, unspecified organism; R65.21 - Severe sepsis with septic shock Status: Acute Assessment and Plan: resolved (6) Essential hypertension: Code(s): I10 - Essential (primary) hypertension Status: Chronic Assessment and Plan: continue to monitor resume home meds as needed (7) LAURENCE (obstructive sleep apnea): Code(s): G47.33 - Obstructive sleep apnea (adult) (pediatric) Status: Acute Assessment and Plan: continue CPAP (8) GERD (gastroesophageal reflux disease): Qualifiers: Esophagitis presence: esophagitis presence not specified Qualified Code(s): K21.9 - Gastro-esophageal reflux disease without esophagitis Code(s): K21.9 - Gastro-esophageal reflux disease without esophagitis Status: Chronic Assessment and Plan: PPI as needed Subjective Date/time seen: 02/10/21 15:19 I feel fine Review of Systems Review of Systems: Narrative: patient initially presented to emergency room due to a scratchy throat. Constitutional: Comments: No fevers no chills no rash Cardiovascular: Comments: no chest pain no PND no orthopnea Respiratory: Comments: no cough no sputum production Gastrointestinal: Comments: no nausea no vomiting no abdominal pain no diarrhea Genitourinary: Comments: no pain or burning with urination Musculoskeletal: Comments: bilateral upper extremity swelling more so of bilateral hands Integumentary/Breasts: Comments: no rash Neurologic: Comments: no sensorimotor deficit Exam Const: General: comfortable, no acute distress, well developed, alert and awake Nutritional Appearance: overweight Orientation/consciousness: patient oriented x3 HENMT: Head: normal to inspection, normocephalic and atraumatic Ears: hearing grossly normal bilaterally Face and sinus: normal facial exam Eyes: General: appearance normal, both eyes and all related structures Pupils: Equal, round and reactive pupils present EOM: EOMs intact bilaterally Neck: Neck: full ROM, no lymphadenopathy and no JVD Thyroid: thyroid normal Lymphatic: no lymphadenopathy noted Resp: Effort & Inspection: normal respiratory effort and able to speak in complete sentences Auscultation: clear to auscultation bilaterally Cardio: Jugular venous distension: no JVD Rate: regular rate Rhythm: regular rhythm Heart sounds: S1 normal heart sound present and S2 normal heart sound present GI: GI Palp: Yes Soft to palpation and Yes No hepatosplenomegaly present : General: Yes deferred Skin: Rashes: no rashes Wounds: no wounds Neuro: General: patient oriented x3 and CN's II-XI intact bilaterally Cranial nerves: Yes CN's II-XII intact bilaterally and Yes Equal, round and reactive pupils present Cognition (Neuro): normal cognition Speech: normal speech Gait exam (Neuro): Normal gait present Motor exam (neuro): 5/5 motor strength present throughout Extrem: General: full ROM, no joint enlargement, no pedal edema and edema ( hands, wrists and forearms bilateral) bilateral Objective Data Vital Signs Vital Signs: Vital Si
[2021-02-11] VITALS (11 sets, daily range): BP systolic 119–145; BP diastolic 47–74; PULSE 83–115; RESP 16–20; TEMP 35.8–36.9; O2SAT 89–100
[2021-02-11] MEDS: ALBUTEROL SULFATE NEB 2.5 MG/0.5 ML INH INHALATION ×4 (01:17→18:13)
[2021-02-11 05:41] LABS: Hematocrit 21.5 % (37.0-47.0); Hemoglobin 7.1 g/dL (12.0-15.0); Immature Platelet Fraction Pct 8.7 % (0.9-11.2); Mean Corpuscular Hemoglobin 31.8 pg (26-34); Mean Corpuscular Volume 96.4 fl (80-100); Mean Platelet Volume 10.9 fl (7.4-10.4); Platelet Count Result 30 k/mm3 (150-375); Red Blood Count 2.23 M/mm3 (4.2-5.4); Red Cell Distribution Width 18.6 % (11.5-14.5)
[2021-02-11 05:43] LABS: White Blood Count 1.1 K/mm3 (4.5-10.0)
[2021-02-11 06:10] LABS: Alanine Aminotransferase 11 U/L (4-35); Albumin Level 2.8 g/dL (3.5-5.1); Alkaline Phosphatase 61 U/L (38-126); Anion Gap 8 mmol/L (8-16); Aspartate Amino Transferase 26 U/L (14-36); Bilirubin,Total 1.3 mg/dL (0.2-1.3); Blood Urea Nitrogen 23 mg/dL (7-17); Calcium 8.4 mg/dL (8.4-10.2); Carbon Dioxide 27 mmol/L (22-30); Chloride 101 mmol/L (98-107); Estimated Glomerular Filt Rate 49; Glucose 142 mg/dL (65-105); Magnesium 1.4 mg/dL (1.6-2.3); Phosphorus 4.4 mg/dL (2.5-4.5); Potassium 3.3 mmol/L (3.4-5.0); Sodium 136 mmol/L (137-145)
[2021-02-11] MEDS: FUROSEMIDE INJ 40 MG/4 ML VIAL IV PUSH ×2 (09:46→17:43)
[2021-02-11] MEDS: QUEtiapine FUMARATE 12.5 MG TABLET PO (09:46)
--- NOTE | 2021-02-11 10:59 | PCNFU ---
Nutrition Follow-Up Complete: Inadequate oral intake related to multiple medical issues (including septic shock, dysphagia, pancytopenia) as evidenced by NPO status. Goal: Patient to meet estimated nutritional needs. Patient is progressing towards goal. We will continue current goal. Pt current nutrition is Heart Healthy. Last recorded weight is 97.3 kg, up from 93 kg on admit. Bowel Motility:+BM reported 02/10 Labs Reviewed:Hgb 7.1,Hct 21.5,Na 136,Mg 1.8 Meds Noted:Lasix,Zithromax,Albuterol,Seroquel, Rocephin Additional Notes: Nutrition follow up. Patient is currently on a heart healthy diet, eating 25% of meals. She did have some sherbert today. Discussed the heart healthy menu with patient and today. Agree with diet orders and encouraged po intake. Monitoring: weight, labs, oral intake every 5 days.
--- NOTE | 2021-02-11 11:40 | PCOTNOTE ---
Per RN, Patient having a chest X-ray done, check back this afternoon for therapy services.
--- NOTE | 2021-02-11 12:54 | PM.IMPN ---
Progress Note: A&P Assessment and Plan (1) Delirium: Code(s): R41.0 - Disorientation, unspecified Status: Acute Assessment and Plan: resolved continue Seroquel (2) Left renal stone: Code(s): N20.0 - Calculus of kidney Status: Acute Assessment and Plan: outpatient external wave lithotripsy (3) Pyelonephritis: Code(s): N12 - Tubulo-interstitial nephritis, not specified as acute or chronic Status: Acute Assessment and Plan: continue antibiotic (4) Acute renal failure: Qualifiers: Acute renal failure type: unspecified Qualified Code(s): N17.9 - Acute kidney failure, unspecified Code(s): N17.9 - Acute kidney failure, unspecified Status: Acute Assessment and Plan: BUN and creatinine now normalized (5) Pancytopenia: Code(s): D61.818 - Other pancytopenia Status: Acute Assessment and Plan: is status post bone marrow biopsy a waiting on results follow-up in the outpatient setting (6) Septic shock: Code(s): A41.9 - Sepsis, unspecified organism; R65.21 - Severe sepsis with septic shock Status: Acute Assessment and Plan: resolved (7) Essential hypertension: Code(s): I10 - Essential (primary) hypertension Status: Chronic Assessment and Plan: stable continue home continue to monitor (8) GERD (gastroesophageal reflux disease): Qualifiers: Esophagitis presence: esophagitis presence not specified Qualified Code(s): K21.9 - Gastro-esophageal reflux disease without esophagitis Code(s): K21.9 - Gastro-esophageal reflux disease without esophagitis Status: Chronic Assessment and Plan: PPI as needed (9) Pneumonia: Code(s): J18.9 - Pneumonia, unspecified organism Status: Acute Assessment and Plan: repeat chest x-ray today will review continue present management (10) LAURENCE (obstructive sleep apnea): Code(s): G47.33 - Obstructive sleep apnea (adult) (pediatric) Status: Acute Assessment and Plan: CPAP at night time Subjective Date/time seen: 02/11/21 12:54 patient states that she feels much better Review of Systems Review of Systems: Narrative: she denies any complaints at this time. No new issues Constitutional: Comments: no chills Cardiovascular: Comments: no leg swelling Respiratory: Comments: no sputum produced Gastrointestinal: Comments: no nausea no vomiting no diarrhea no constipation no abdominal pain Genitourinary: Comments: no pain or burning with urination Musculoskeletal: Comments: bilateral upper extremity edema Integumentary/Breasts: Comments: no rash Neurologic: Comments: no sensorimotor deficit Exam Narrative: Exam Narrative: sitting in bed Const: General: comfortable, no acute distress, well developed, alert and awake Nutritional Appearance: average body habitus Orientation/consciousness: patient oriented x3 HENMT: Head: normal to inspection, normocephalic and atraumatic Ears: hearing grossly normal bilaterally Face and sinus: normal facial exam Eyes: General: appearance normal, both eyes and all related structures Pupils: Equal, round and reactive pupils present EOM: EOMs intact bilaterally Neck: Neck: full ROM, no lymphadenopathy and no JVD Thyroid: thyroid normal Lymphatic: no lymphadenopathy noted Resp: Effort & Inspection: normal respiratory effort and able to speak in complete sentences Auscultation: clear to auscultation bilaterally Cardio: Jugular venous distension: no JVD Rate: regular rate Rhythm: regular rhythm Heart sounds: S1 normal heart sound present and S2 normal heart sound present GI: GI Palp: Yes Soft to palpation and Yes No hepatosplenomegaly present : General: Yes deferred Skin: Rashes: no rashes Wounds: no wounds Neuro: General: patient oriented x3 and CN's II-XI intact bilaterally Cranial nerves: Yes
--- NOTE | 2021-02-11 14:00 | PCOTNOTE ---
Per RN, Patient had a chest X-ray done earlier, it has not been read yet, wait until tomorrow to see her.
--- NOTE | 2021-02-11 14:08 | PC.NURSE ---
Observed patient care and reviewed charting by [facility] student nurse Leno Fu [phone]
--- NOTE | 2021-02-11 17:19 | WPDONCPN ---
Progress Note: A/P (1) Pancytopenia Code(s): D61.818 - Other pancytopenia Status: Acute Assessment and plan: Patient is a 75-year-old female with history of hypertension, DLP and ITP diagnosed in 2005 without recent follow-up. She came in to the [facility] on 02/05 for acute episodes dyspnea, anorexia and generalized weakness, as well as frequent falls. Labs in the ED showed WBC count of 1.3 hemoglobin of 5.9 and platelet of 30,000. Differential showed 7.6% immature granulocytes, no blasts or promyelocytes. Fibrinogen was elevated and D-dimer was also elevated. Initial labs showed normal serum iron and iron saturation with elevated B12. LDH was slightly elevated at 642. TLS labs normal. She was found to have septic shock in the ED and transferred to ICU. CT a/p showed pyelo with urine cx grew klebsiella. She was treated for pyelo and CAP with ceftriaxone and azithromycin. Bone marrow biopsy performed on 02/07 still not finalized, but flow showing 14% myeloblasts and 15% immature monocytes. She has clinically improved but still requiring hospitalization for her CAP. She continues to be weak and unable to move much, attempted walking with a walker yesterday. - Discussed case with attending Dr. 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 - Called [facility] transfer line, spoke with Dr. Leah Henning, fellow, accepted the patient on their BMT floor, but currently no beds. - [facility] intake will reach out to floor nurses to update them when bed is available for transfer. - For now, continue daily CBC and BMP, broad-spectrum abx coverage and optimize nutrition and mobilization from bed. Would consider nutrition consult. - Discussed insertion of picc line once infections resolve in order to avoid frequent needle sticks, pt developing very large ecchymoses. - Time Spent With Patient Total time spent is greater than 50% in coordination of care (as documented) at patient's floor/unit and/or counseling patient: Greater than 35 minutes Subjective Interval history: This is a 75 year old female with history of hypertension and hyperlipidemia presented to [facility] on 02/05 due to worsening dyspnea, as well as complaint of generalized weakness and loss of appetite over 1 week duration and frequent falls from her bed. She denies any fevers and chills. Denies any bleeding or easy bruising. Patient was found to be in septic shock in the ER. CT abdomen and pelvis showed acute pyelonephritis. Labs showed pancytopenia with WBC count of 1.4 hemoglobin of 7.3 and platelet of 30,000. Hemoglobin dropped down to 5.9 soon after that. Patient received 2 units of packed red blood cell. She was admitted to ICU and urine culture grew klebsiella, blood cultures so far negative. She was treated for acute pyelo and CAP pneumonia with ceftriaxone and azithromycin. Initially given vancomycin, but this was stopped on 02/08. Other labs showed elevated coags and D-dimer, no signs of TLS. She was seen by Dr. Lopez in oncology for her pancytopenia and a bone marrow biopsy under fluoroscopy was performed on 02/07. 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 She has improved from her infection and was transferred to the floor, but continues to feel weak and not very mobile, not eating much and continues without appetite. Jorge at bedside reports she was diagnosed with ITP in 2005, treated locally with prednisone, refused splenectomy at the time, and was given IVIG at some point which she had a very severe adverse reaction to. will bring those records from 2005 for us to review. After her IVIG experience she was lost to follow-up and no longer kept track of her blood counts. Review of Systems - Constitutional Reports anorexia, Repor
[2021-02-12 11:56] LABS: Haptoglobin 331 mg/dL (43-212)
--- NOTE | 2021-02-17 21:04 | PM.TDS ---
Transfer Discharge Sum: Prov Provider Date of admission: 02/05/21 23:21 Primary care physician: ED MADDEN Admitting clinician: Delvis Lindsey MD Consults: 02/05/21 23:23 Consult to Physician Routine Comment: Consulting Provider: Roberto Lopez Reason for consultation: pancytopenia Has provider been notified: Yes Consult to Physician Routine Comment: Consulting Provider: Derick Goodman Reason for consultation: septic shock Has provider been notified: Yes Consult to Physician Routine Comment: Consulting Provider: Efren Jiménez Reason for consultation: guaic positive, anemia Has provider been notified: Yes DS: Admitting Diagnosis Admitting Diagnosis Admitting Diagnosis: (1) Pyelonephritis: (2) Septic shock: (3) Pancytopenia: (4) Abnormal CT of the abdomen: (5) Acute renal failure: (6) Left renal stone: . (7) Suspected 2019 novel coronavirus infection: (8) Hyperlipidemia: (9) Essential hypertension: (10) GERD (gastroesophageal reflux disease): DS: Discharge Diagnosis Discharge Diagnosis (1) Pyelonephritis: Code(s): N12 - Tubulo-interstitial nephritis, not specified as acute or chronic Status: Acute Assessment and Plan: Patient was treated with antibiotics Ua cx was significant for Klebsiella Oxytoca which was pansensitive for the most part. (2) Septic shock: Code(s): A41.9 - Sepsis, unspecified organism; R65.21 - Severe sepsis with septic shock Status: Acute Assessment and Plan: Resolved Fluid resuscitated (3) Delirium: Code(s): R41.0 - Disorientation, unspecified Status: Acute Assessment and Plan: Resolved at the time of transfer (4) Left renal stone: Code(s): N20.0 - Calculus of kidney Status: Acute Assessment and Plan: Will follow up in the outpatient setting for this (5) Pancytopenia: Code(s): D61.818 - Other pancytopenia Status: Acute Assessment and Plan: Transferred to [place] for treatment as per Hem/Onc recs (6) Strep pharyngitis: Code(s): J02.0 - Streptococcal pharyngitis Status: Acute Assessment and Plan: Resolved (7) Essential hypertension: Code(s): I10 - Essential (primary) hypertension Status: Chronic Assessment and Plan: Home meds were re started (8) GERD (gastroesophageal reflux disease): Qualifiers: Esophagitis presence: esophagitis presence not specified Qualified Code(s): K21.9 - Gastro-esophageal reflux disease without esophagitis Code(s): K21.9 - Gastro-esophageal reflux disease without esophagitis Status: Chronic Assessment and Plan: Stable (9) LAURENCE (obstructive sleep apnea): Code(s): G47.33 - Obstructive sleep apnea (adult) (pediatric) Status: Acute Assessment and Plan: Continue the use of CPAP at night time. Transfer Discharge Sum: Med Medications Active and Home Medications: Home Medications acetaminophen 325 mg capsule 325 mg PO Q6H PRN 11/01/19 [History Confirmed 02/06/21] aspirin 81 mg tablet,delayed release 81 mg PO DAILY 11/01/19 [History Confirmed 02/06/21] atorvastatin 10 mg tablet 10 mg PO DAILY 11/01/19 [History Confirmed 02/06/21] calcium carbonate 600 mg calcium (1,500 mg) tablet 600 mg PO PRN PRN 11/01/19 [History Confirmed 02/06/21] cholecalciferol (vitamin D3) 50 mcg (2,000 unit) tablet 2,000 unit PO DAILY 11/01/19 [History Confirmed 02/06/21] cyanocobalamin (vitamin B-12) 500 mcg tablet 500 mcg PO DAILY 11/01/19 [History Confirmed 02/06/21] duloxetine 30 mg capsule,delayed release 30 mg PO DAILY 11/01/19 [History Confirmed 02/06/21] eletriptan 20 mg tablet 20 mg PO PRN PRN 11/01/19 [History Confirmed 02/06/21] esomeprazole magnesium 40 mg capsule,delayed release 40 mg PO DAILY 11/01/19 [History Confirmed 02/06/21] lisinopril 10 mg tablet 10 mg PO DA
== END 2021-02-11 19:28 | disposition short-term general hospital (02) | DRG 871 ==
LOC: ANHED 18:28 → ANHICU 02-06 00:36 → ANH3MED 02-10 14:06 → ANHICU 02-13 11:35
PROVIDERS: Internal Medicine; Internal Medicine Medical Oncology; Radiology Diagnostic Radiology; Admitting Provider Family Medicine; Emergency Provider General Practice; Referring Provider Internal Medicine Hematology & Oncology; Visit Provider Internal Medicine
PROC: 07DR3ZX Extraction of Iliac Bone Marrow, Percutaneous Approach, Diagnostic (ICD-10-PCS; principal; 2021-02-07 10:00)
DX: A41.9 Sepsis, unspecified organism (principal); R65.21 Severe sepsis with septic shock; J18.9 Pneumonia, unspecified organism; N10 Acute pyelonephritis; N17.9 Acute kidney failure, unspecified; D61.818 Other pancytopenia; Z68.41 Body mass index [BMI] 40.0-44.9, adult; B96.1 Klebsiella pneumoniae [K. pneumoniae] as the cause of diseases classified elsewhere; Z20.822 Contact with and (suspected) exposure to COVID-19; J02.0 Streptococcal pharyngitis; N20.0 Calculus of kidney; K21.9 Gastro-esophageal reflux disease without esophagitis; I10 Essential (primary) hypertension; G47.33 Obstructive sleep apnea (adult) (pediatric); E66.01 Morbid (severe) obesity due to excess calories; E78.5 Hyperlipidemia, unspecified; R41.0 Disorientation, unspecified
CPT/HCPCS: 36415; 36430; 36600; 38222; 70450; 71045; 71046; 74177; 80053; 80202; 81001; 82247; 82248; 82607; 82728; 82746; 82805; 82948; 83010; 83540; 83550; 83605; 83615; 83735; 84100; 84443; 84466; 84550; 85025; 85027; 85046; 85055; 85380; 85384; 85610; 85730; 86140; 86850; 86880; 86900; 86901; 86920; 87040; 87077; 87086; 87088; 87186; 87804; 87880; 88184; 88185; 88305; 88311; 88313; 88342; 88360; 93005; 93306; 94640; 96365; 96367; 96375; 97110; 97116; 97161; 97165; 97530; 97535; 99291; A9270; C9113; C9803; J0131; J0456; J0696; J1630; J1940; J2060; J2370; J3010; J3370; J7030; J7060; P9016; P9034; Q9967; U0003; U0005